=== PATIENT | male | born 1940 | race Caucasian/White ===

== ENCOUNTER → 2020-04-29 14:43 | Outpatient (REF) | payer MEDICARE, SELFPAY | LOC: ANHLAB 14:43 | PROVIDERS: Visit Provider Surgery Plastic and Reconstructive Surgery | DX: D49.2 Neoplasm of unspecified behavior of bone, soft tissue, and skin (principal) | CPT/HCPCS: 88305 ==

== ENCOUNTER 2021-01-22 12:54 | Outpatient (CLI) | payer MEDICARE, SELFPAY ==
--- NOTE | ~2021-01-22 | US_ITS ---
EXAMINATION: US renal BI DATE: 01/22/2021 13:34 INDICATION: Renal insufficiency TECHNIQUE: Multiple ultrasound grayscale images of the kidneys were obtained. COMPARISON: None. FINDINGS: The right kidney measures 10.5 x 5.3 x 5.7 cm. The left kidney measures 10.3 x 5.0 x 6.5 cm. There ap pears to be mildly increased echogenicity of both kidneys consistent with medical renal disease. Ther e are a few small echogenic foci in the right kidney with posterior truncal artifact consistent with calcification either renal stones or atherosclerotic calcification. There are couple anechoic exophyt ic cyst at the periphery of the left kidney measuring 1.2 cm and 1.5 cm in maximal diameters. There i s no hydronephrosis in either kidney. Outside The bladder is normal. IMPRESSION: 1. Bilateral increased renal cortical echogenicity consistent with medical renal disease. 2. A few small calcifications in the right kidney which could represent either nonobstructing renal s tones or atherosclerotic calcifications. No hydronephrosis in either kidney. Reviewed, dictated and finalized at location A. CIATE PROFESSOR OF FORESTRY IMPRESSION: 1. Bilateral increased renal cortical echogenicity consistent with medical denisa al disease. 2. A few small calcifications in the right kidney which could represent either nonobstructing renal stones or atherosclerotic calcifications. No hydronephrosi s in either kidney.
== END 2021-01-22 12:55 | disposition home or self-care (01) ==
DX: N28.9 Disorder of kidney and ureter, unspecified (principal)
CPT/HCPCS: 76775

== ENCOUNTER 2022-05-13 12:31 | Outpatient (CLI) | payer MEDICARE, SELFPAY | END 2022-05-13 12:32 | disposition home or self-care (01) | LOC: ANHAUDIO 12:32 | PROVIDERS: Visit Provider Otolaryngology | DX: H91.93 Unspecified hearing loss, bilateral (principal) | CPT/HCPCS: 92557; 92567 ==

== ENCOUNTER 2023-01-20 17:23 | Observation (INO) | payer MEDICARE, SELFPAY ==
[2023-01-20 17:26] VITALS: BP 153/67; PULSE 79; RESP 19; TEMP 37; O2SAT 98
[2023-01-20 18:11] LABS: Appearance Urine Clear (Clear); Bilirubin Urine Negative (Negative); Blood Urine 2+ (Negative); Color Urine Yellow (Yellow); Glucose Urine UA Negative (Negative); Ketones Urine Negative (Negative); Leukocyte Esterase Ur Negative LEU/UL (Negative); Nitrate Urine Negative (Negative); Protein Urine 3+ mg/dL (Negative); Specific Grav Ur 1.025 (1.001-1.035); Urobilinogen Urine 0.2 mg/dL (<2.0); pH Urine 5.5 (5.0-9.0)
[2023-01-20 18:25] LABS: Mucus Urine Rare /lpf; RBC Urine 0-2 /hpf (0-2); WBC Urine 0-3 /hpf
[2023-01-20 18:26] LABS: Add Urine Microscopic? YES
[2023-01-20 18:57] LABS: Basophils Percent Auto 0.5 % (0.2-1.2); Eosinophils Absolute Auto 0.2 K/mm3 (0-0.3); Hematocrit 37.4 % (42.0-52.0); Immature Granulocyte Absolute 0.02 K/mm3 (0.00-0.031); Immature Granulocyte Percent A 0.3 % (0-0.5); Lymphocytes Absolute Auto 2.25 K/mm3 (0.9-3.2); Lymphocytes Percent Auto 35.5 % (18.3-44.2); Mean Corpuscular HGB Conc 32.1 g/dl (32-36); Mean Corpuscular Hemoglobin 30.8 pg (26-34); Mean Corpuscular Volume 95.9 fl (80-100); Mean Platelet Volume 9.7 fl (7.4-10.4); Monocytes Absolute Auto 0.5 K/mm3 (0.1-0.6); Monocytes Percent Auto 7.6 % (2.6-8.5); Neutrophils Absolute Auto 3.4 K/mm3 (1.3-6.7); Neutrophils Percent Auto 53.1 % (45.5-73.1); Platelet Count Result 152 k/mm3 (150-375); Red Cell Distribution Width 14.6 % (11.5-14.5); White Blood Count 6.3 K/mm3 (4.5-10.0)
[2023-01-20 19:11] LABS: Anion Gap 5 mmol/L (8-16); Blood Urea Nitrogen 40 mg/dL (9-20); Calcium 9.6 mg/dL (8.4-10.2); Carbon Dioxide 28 mmol/L (22-30); Chloride 107 mmol/L (98-107); Estimated CRCL calculation 21 ml/min; Estimated Glomerular Filt Rate 27; Glucose 105 mg/dL (65-110); Potassium 3.9 mmol/L (3.4-5.0); Sodium 140 mmol/L (137-145)
--- NOTE | 2023-01-20 19:43 | ED.GENADULT ---
HPI - General Adult General Chief complaint: Urogenital-Male Stated complaint: decreased urine output Time Seen by Provider: 01/20/23 17:34 Source: patient Mode of arrival: ambulatory Limitations: no limitations History of Present Illness HPI narrative: 82-year-old with a history of HIV, CKD here with complaints of decreased urine output since this morning. Patient states that he diagnosed himself with COVID on Wednesday at home. He denies any fever or chills or cough or shortness of breath. He states he has been drinking enough water but no urine output. Patient states yesterday he had decent urine output but since this morning very minimal. No history of nausea, vomiting or diarrhea. Onset (ago): day(s) (1) Severity: moderate Pain Consistency: constant Relieving factors: none Exacerbating factors: none Associated symptoms: denies other symptoms Treatments prior to arrival: none Related Data Home Medications Medication Instructions Recorded Confirmed acyclovir 400 mg tablet 400 mg PO BID 11/27/19 alfuzosin 10 mg tablet,extended 10 mg PO DAILY 11/27/19 release 24 hr aspirin 81 mg tablet,delayed 81 mg PO DAILY 11/27/19 release (Adult Aspirin Regimen) atorvastatin 40 mg tablet 40 mg PO DAILY 11/27/19 cyclosporine 0.05 % eye drops in a 1 drop ophthalmic (eye) Q12H 11/27/19 dropperette (Restasis) darunavir ethanolate 800 mg tablet 800 mg PO DAILY 11/27/19 (Prezista) donepezil 10 mg tablet 10 mg PO ONCE 11/27/19 elviteg 150 mg-cob 150 mg-emtricit 1 tablet PO DAILY 11/27/19 200 mg-tenofo alafenam 10 mg tablet (Genvoya) escitalopram oxalate 10 mg tablet 10 mg PO BID 11/27/19 (Lexapro) fenofibrate 50 mg capsule 50 mg PO DAILY 11/27/19 finasteride 5 mg tablet 5 mg PO DAILY 11/27/19 quinapril 20 2 tablet PO DAILY 11/27/19 mg-hydrochlorothiazide 25 mg tablet trazodone 100 mg tablet 50 mg PO BID 11/27/19 Allergies Allergy/AdvReac Type Severity Reaction Status Date / Time Penicillins Allergy Unknown Skin Verified 01/20/23 19:09 irritation [facility] Past Medical History Medical History (Updated 01/20/23 @ 19:49 by Ang Kelley MD) History of patellar fracture History of retinal tear HIV (human immunodeficiency virus infection) Surgical History Surgical History History of repair of rotator cuff Exam Narrative: GENERAL: Well-appearing, well-nourished, and in no acute distress. HEAD: Normocephalic, atraumatic. EYES: PERRLA and EOMI. NECK: Supple. CHEST: Clear to auscultation. No respiratory distress. HEART: Regular rate and rhythm. No murmur heard. Normal peripheral pulses. ABDOMEN: Soft, nontender, nondistended, normal active bowel sounds. EXTREMITIES: Normal range of motion. No edema. SKIN: Warm, dry, no rash. NEURO: No focal deficits. Alert and oriented x3. PSYCH: Normal mood and affect. Course Course Emergency Course: Bladder scanner showed 14 mL of urine must be dehydrated we will start IV fluids obtain lab work His creatinine is 2.40 we will admit him to the hospital for IV fluids. Vital Signs Vital signs: Vital Signs Temperature 37.0 C 01/20/23 17:26 Pulse Rate 79 01/20/23 17:26 Respiratory Rate 19 01/20/23 17:26 Blood Pressure 153/67 H 01/20/23 17:26 Pulse Oximetry 98 01/20/23 17:26 Oxygen Delivery Room Air 01/20/23 17:26 Temperature 37.0 C 01/20/23 17:26 Pulse Rate 79 01/20/23 17:26 Respiratory Rate 19 01/20/23 17:26 Blood Pressure 153/67 H 01/20/23 17:26 Pulse Oximetry 98 01/20/23 17:26 Oxygen Delivery Room Air 01/20/23 17:26 Medical Decision Making Vital Signs Vital Signs: Vital Signs Temperature 37.0 C 01/20/23 17:26 Pulse Rate 79 01/20/23 17:26 Respiratory Rate 19 01/20/23 17:26 Blood Pressure 153/67 H 01/20/23 17:26 Pulse Oximetry 98 01/20/23 17:26 Oxygen Delivery Room Air 01/20/23 17:26 Temperature 37.0 C 01/20/23 17:2
--- NOTE | 2023-01-20 19:43 | PM.IMHP ---
H&P: HPI History of Present Illness Date/Time: 01/20/23 19:43 Chief Complaint: Decrease urine output Narrative: This is an 82-year-old male with past medical history significant for HIV, on highly anti retroviral therapy, chronic kidney disease, benign prostatic hyperplasia, dementia, dyslipidemia, hypertension. patient presents to the emergency room due to decreased urine output for 1 day or so patient had been diagnosed at home with COVID-19 he denies any fevers, rigors, chills, nausea, vomiting, diarrhea patient states that he had episodes of urinary incontinence initially. preliminary workup was significant for basic metabolic profile with BUN of 40, creatinine of 2.4, tested positive for COVID-19. patient is been admitted for further evaluation management and treatment. Review of Systems Review of Systems: Patient presents to the emergency room due to decreased urine output patient also tested positive for COVID with a home kit Constitutional: Constitutional: Denies chills, Denies fatigue, Denies fever(s), Denies malaise, Denies night sweats and Denies weakness Eyes: Eyes: Denies change in vision ENT: Denies dysphagia, Denies vertigo, Denies dizziness and Denies odynophagia Cardiovascular: Cardiovascular: Denies chest pain, Denies edema, Denies leg edema, Denies lightheadedness and Denies palpitations Respiratory: Respiratory: Denies chest congestion, Denies cough, Denies pain on inspiration and Denies dyspnea Gastrointestinal: Gastrointestinal: Denies abdominal pain, Denies dyspepsia, Denies heartburn, Denies diarrhea, Denies nausea and Denies vomiting Genitourinary: Genitourinary: Reports urinary incontinence and Reports other ( decreased urine output) Musculoskeletal: Musculoskeletal: Denies back pain and Denies myalgias Integumentary/Breasts: Skin/Breast: Denies rash Neurologic: Denies focal weakness, Denies Sensory deficit (Neuro), Denies paresthesias and Denies weakness Psychiatric: Psychiatric: Reports no additional psychiatric complaints and Reports as per HPI Endocrine: Endocrine: Denies cold intolerance, Denies fatigue, Denies flushing, Denies heat intolerance, Denies polyphagia, Denies polydipsia and Denies palpitations Hematologic/Lymphatic: Hematologic/Lymphatic: Reports no additional hematologic/lymphatic complaints and Reports as per HPI Allergic/Immunologic: Allergic/Immunologic: Reports no additional allergic/immunologic complaints and Reports as per HPI PMFSH Past Medical History Medical History (Updated 01/21/23 @ 00:20 by Tory Rajput MD) History of patellar fracture History of retinal tear HIV (human immunodeficiency virus infection) Surgical History Surgical History History of repair of rotator cuff Family History Family History (Updated 01/20/23 @ 22:39 by Moustapha Santos RN) Father Acute myocardial infarction Mother Acute myocardial infarction Social History Social History Smoking status: Never smoker Alcohol intake: never Substance use: never Lack of Transportation: No Lack of Food: Never True Current Housing: I Have Housing Concerned About Future Housing: No Difficulty Paying Gas/Electric Bills: No Difficulty Paying for Meds: No Currently Unemployed: No Education: Master's Degree or Higher Difficulty w/ Childcare or Family Care: No Spiritual care concerns: No Meds Home Medications and Allergies Home Medications Medication Instructions Recorded Confirmed Type alfuzosin 10 mg tablet,extended 10 mg PO DAILY 11/27/19 01/20/23 History release 24 hr aspirin 81 mg tablet,delayed 81 mg PO DAILY 11/27/19 01/20/23 History release (Adult Aspirin Regimen) atorvastatin 40 mg tablet 40 mg PO DAILY 11/27/19 01/20/23 History donepezil 10 mg tablet 10 mg PO ONCE 11/27/19 01/20/23 History escitalopram oxalate 10 mg tablet 10 mg PO B
[2023-01-20] MEDS: SODIUM CHLORIDE 0.9% IV 1,000 ML 150 ML IV CONT (20:22)
[2023-01-20 20:38] LABS: Influenza A QL RT-PCR Negative (Negative); Influenza B QL RT-PCR Negative (Negative); SARS-CoV-2 RNA PCR Positive
--- NOTE | 2023-01-20 21:33 | ADMGEN ---
This patient, Francisco Mckeon, was admitted to Medical Room 251-01. Patient/family oriented to hospital policies and general routines including ID bracelet, bed and alarms, visiting hours, pain management, procedures, bathroom and other care routines, personal items, smoking policy, room service/diet, and visiting hours. Information on how to activate the Rapid Response Team has been discussed. Patient/Family are encouraged to report perceived risks to care and to ask questions if they do not understand what they are told or what they should do.
[2023-01-20 21:48] VITALS: BP 152/74; PULSE 77; RESP 16; TEMP 36.6; O2SAT 98
[2023-01-20 21:58] VITALS: BMI 22.7
[2023-01-20] MEDS: SODIUM CHLORIDE 0.9% IV 1,000 ML 75 ML IV CONT (22:04)
[2023-01-20] MEDS: traZODone HCL 50 MG TABLET PO (23:24)
[2023-01-20] MEDS: MIRTAZAPINE 15 MG TABLET PO (23:24)
[2023-01-20] MEDS: FENOFIBRATE 160 MG TABLET PO (23:26)
[2023-01-20] MEDS: CALCIUM CARBONATE (TUMS) 500 MG (200 MG ELEMENTAL) 400 MG PO (23:28)
[2023-01-20] MEDS: ATORVASTATIN 40 MG TABLET PO (23:35)
[2023-01-21] VITALS: BP 146/72; PULSE 69; RESP 16; TEMP 36.6; O2SAT 97
[2023-01-21 04:20] VITALS: BP 148/61; PULSE 62; RESP 16; TEMP 36.5; O2SAT 96
[2023-01-21 06:03] LABS: Basophils Percent Auto 0.6 % (0.2-1.2); Eosinophils Absolute Auto 0.2 K/mm3 (0-0.3); Eosinophils Percent Auto 3.9 % (0-4.4); Hematocrit 34.8 % (42.0-52.0); Hemoglobin 11.2 g/dL (14.0-18.0); Immature Granulocyte Absolute 0.01 K/mm3 (0.00-0.031); Immature Granulocyte Percent A 0.2 % (0-0.5); Mean Corpuscular HGB Conc 32.2 g/dl (32-36); Mean Corpuscular Hemoglobin 30.6 pg (26-34); Mean Corpuscular Volume 95.1 fl (80-100); Mean Platelet Volume 10.4 fl (7.4-10.4); Monocytes Absolute Auto 0.5 K/mm3 (0.1-0.6); Monocytes Percent Auto 8.2 % (2.6-8.5); Neutrophils Absolute Auto 3.1 K/mm3 (1.3-6.7); Neutrophils Percent Auto 50.1 % (45.5-73.1); Platelet Count Result 146 k/mm3 (150-375); Red Blood Count 3.66 M/mm3 (4.6-6.20); Red Cell Distribution Width 14.5 % (11.5-14.5); White Blood Count 6.2 K/mm3 (4.5-10.0)
[2023-01-21 06:17] LABS: Anion Gap 3 mmol/L (8-16); Blood Urea Nitrogen 33 mg/dL (9-20); Carbon Dioxide 27 mmol/L (22-30); Chloride 111 mmol/L (98-107); Creatine Kinase 373 U/L (55-170); Estimated CRCL calculation 23 ml/min; Estimated Glomerular Filt Rate 30; Glucose 88 mg/dL (65-110); Potassium 4.1 mmol/L (3.4-5.0); Sodium 141 mmol/L (137-145)
--- NOTE | 2023-01-21 08:02 | PM.IMPN ---
Progress Note: A&P Assessment and Plan (1) COVID-19 in immunocompromised patient: Code(s): U07.1 - COVID-19; D84.9 - Immunodeficiency, unspecified Status: Acute Assessment and Plan: Supportive care, stable on room air, hold off on dexamethasone and remdesivir Check D-dimer, CRP (2) TARSHA (acute kidney injury): Code(s): N17.9 - Acute kidney failure, unspecified Status: Acute Assessment and Plan: Monitor creatinine, continue Ramon for now, hold TRINO-inhibitor, gentle IV fluids, renal ultrasound reviewed, follow-up nephrology consultation Elevated CK, mild, recheck in the a.m. (3) Chronic kidney disease: Code(s): N18.9 - Chronic kidney disease, unspecified Status: Acute Assessment and Plan: Unknown baseline, as above, creatinine was 1.4 in 2020 (4) HIV (human immunodeficiency virus infection): Code(s): B20 - Human immunodeficiency virus [HIV] disease Status: Acute Assessment and Plan: Continue anti-retroviral therapy, consider Heme-Onc consultation, check CD4 count and viral load (5) BPH (benign prostatic hyperplasia): Code(s): N40.0 - Benign prostatic hyperplasia without lower urinary tract symptoms Status: Acute Assessment and Plan: Cont ramon, consider urology consult (6) Dementia: Code(s): F03.90 - Unspecified dementia, unspecified severity, without behavioral disturbance, psychotic disturbance, mood disturbance, and anxiety Status: Acute Assessment and Plan: Stable, continue Aricept (7) Essential hypertension: Code(s): I10 - Essential (primary) hypertension Status: Acute Assessment and Plan: Blood pressures reviewed today, somewhat elevated (8) Hyperlipidemia: Code(s): E78.5 - Hyperlipidemia, unspecified Status: Acute Assessment and Plan: Check fasting lipid panel tomorrow (9) Thrombocytopenia: Code(s): D69.6 - Thrombocytopenia, unspecified Status: Acute Assessment and Plan: Unknown etiology, mild, monitor, could be secondary to HIV status versus acute illness with COVID Plan DVT prophylaxis with SCDs GI prophylaxis not indicated Code status full code Subjective Date/time seen: 01/21/23 08:02 Objective Data Vital Signs Vital Signs: Vital Signs - 24 hr 01/20/23 17:26 01/20/23 21:48 01/21/23 00:00 Temperature 98.6 F 97.8 F 97.8 F Pulse Rate 79 77 69 Respiratory Rate 19 16 16 Blood Pressure 153/67 H 152/74 H 146/72 H Pulse Oximetry 98 98 97 Oxygen Delivery Room Air 01/21/23 04:20 Temperature 97.7 F Pulse Rate 62 Respiratory Rate 16 Blood Pressure 148/61 H Pulse Oximetry 96 Oxygen Delivery Intake/Output Intake/Output: Intake & Output 01/18/23 01/19/23 01/20/23 01/21/23 23:59 23:59 23:59 23:59 Intake Total 250 Output Total 1400 Balance -1150 Meds/Results Medications: Active Medications Generic Name Dose Route Start Last Admin Trade Name Freq PRN Reason Stop Dose Admin Acetaminophen 650 mg 01/20/23 19:49 Acetaminophen 325 Mg Tablet PO Q4H PRN Mild Pain (1-3) or Fever Alfuzosin HCl 10 mg 01/21/23 09:00 Alfuzosin 10 Mg Er Tablet PO DAILY [facility] Alprazolam 0.25 mg 01/20/23 22:40 Alprazolam (*Crx) 0.25 Mg Tablet PO BID PRN anxiety Amlodipine Besylate 5 mg 01/21/23 09:00 Amlodipine Besylate 5 Mg Tablet PO DAILY [facility] Aspirin 81 mg 01/21/23 09:00 Aspirin 81 Mg Enteric Tablet PO DAILY [facility] Atorvastatin Calcium 40 mg 01/20/23 23:35 01/20/23 23:35 Atorvastatin 40 Mg Tablet PO 40 mg HS EFREM Administration Calcium Carbonate 400 mg 01/20/23 22:56 01/20/23 23:28 Calcium Carbonate (Tums) 500 Mg (200 Mg Elemental) PO 400 mg Q4H PRN Administration Indigestion Donepezil HCl 10 mg 01/21/23 09:00 Donepezil Hcl 10 Mg Tablet PO DAILY [facility] Escitalopram Oxalate 10 mg
[2023-01-21] MEDS: ASPIRIN 81 MG ENTERIC TABLET PO (09:15)
[2023-01-21] MEDS: amLODIPine BESYLATE 5 MG TABLET PO (09:15)
[2023-01-21] MEDS: ESCITALOPRAM OXALATE 10 MG TABLET PO (09:16)
[2023-01-21] MEDS: FINASTERIDE 5 MG TABLET PO (09:17)
[2023-01-21] MEDS: DONEPEZIL HCL 10 MG TABLET PO (09:17)
[2023-01-21 12:20] LABS: D Dimer 0.91 ug/mL (<0.48)
[2023-01-21 13:06] LABS: CRP 1.9 mg/dL (<1.0)
[2023-01-21 13:43] VITALS: BP 163/64; PULSE 64; RESP 18; TEMP 37.1; O2SAT 99
--- NOTE | 2023-01-21 14:07 | PM.DS ---
DS: Admitting Diagnosis Discharge Date 01/21/23 Admitting Diagnosis urinary retention DS: Discharge Diagnosis Discharge Diagnosis (1) COVID-19 in immunocompromised patient: Code(s): U07.1 - COVID-19; D84.9 - Immunodeficiency, unspecified Status: Acute Assessment and Plan: Supportive care, stable on room air, hold off on dexamethasone and remdesivir Check D-dimer, CRP (2) TARSHA (acute kidney injury): Code(s): N17.9 - Acute kidney failure, unspecified Status: Acute Assessment and Plan: Monitor creatinine, continue Ramon for now, hold TRINO-inhibitor, gentle IV fluids, renal ultrasound reviewed, follow-up nephrology consultation Elevated CK, mild, recheck in the a.m. (3) Chronic kidney disease: Code(s): N18.9 - Chronic kidney disease, unspecified Status: Acute Assessment and Plan: Unknown baseline, as above, creatinine was 1.4 in 2020 (4) HIV (human immunodeficiency virus infection): Code(s): B20 - Human immunodeficiency virus [HIV] disease Status: Acute Assessment and Plan: Continue anti-retroviral therapy, consider Heme-Onc consultation, check CD4 count and viral load (5) BPH (benign prostatic hyperplasia): Code(s): N40.0 - Benign prostatic hyperplasia without lower urinary tract symptoms Status: Acute Assessment and Plan: Cont ramon, consider urology consult (6) Dementia: Code(s): F03.90 - Unspecified dementia, unspecified severity, without behavioral disturbance, psychotic disturbance, mood disturbance, and anxiety Status: Acute Assessment and Plan: Stable, continue Aricept (7) Essential hypertension: Code(s): I10 - Essential (primary) hypertension Status: Acute Assessment and Plan: Blood pressures reviewed today, somewhat elevated (8) Hyperlipidemia: Code(s): E78.5 - Hyperlipidemia, unspecified Status: Acute Assessment and Plan: Check fasting lipid panel tomorrow (9) Thrombocytopenia: Code(s): D69.6 - Thrombocytopenia, unspecified Status: Acute Assessment and Plan: Unknown etiology, mild, monitor, could be secondary to HIV status versus acute illness with COVID Plan DVT prophylaxis with SCDs GI prophylaxis not indicated Code status full code DS: Summary Hospital Course Hospital Course: 82-year-old male with past medical history significant for HIV, on highly anti retroviral therapy, chronic kidney disease, benign prostatic hyperplasia, dementia, dyslipidemia, hypertension. patient presents to the emergency room due to decreased urine output for 1 day or so patient had been diagnosed at home with COVID-19 he denies any fevers, rigors, chills, nausea, vomiting, diarrhea patient states that he had episodes of urinary incontinence initially. preliminary workup was significant for basic metabolic profile with BUN of 40, creatinine of 2.4, tested positive for COVID-19.? patient is been admitted for further evaluation management and treatment. All patient's symptoms resolved at this time he is requesting to go home. He states he can do follow-up HIV labs and medications with his outpatient physician. Creatinine is improving with minimal intervention. Urinary retention is resolved and Ramon is removed. If the symptoms resolve, he will need to follow up with Urology or return to the ER. Suspect urinary retention secondary to BPH. Follow-up with family medicine outpatient. Time Spent with Patient Time attestation: Total time spent providing and/or coordinating discharge services: DS: Data Data Completed and Pending Labs on day of discharge: Labs from last 24 hours 01/21/23 01/21/23 01/21/23 11:48 11:48 11:48 WBC RBC Hgb Hct MCV MCH MCHC RDW Plt Count MPV Immature Gran % (Auto) Neut % (Auto) Lymph % (Auto) Hall % (Auto) Eos % (Auto) Baso % (Auto)
[2023-01-23 16:21] LABS: HIV 1 RNA PCR Not Detected Copies/mL; HIV 1 RNA PCR Not Detected Log cps/mL
[2023-01-26 17:04] LABS: Absolute CD4 Count 264 cells/uL (490-1740); Lymphocytes, Absolute 1597 cells/uL (850-3900); Percent CD4 Cells 17 % (30-61)
== END 2023-01-21 14:37 | disposition home or self-care (01) ==
LOC: ANHED 19:49 → ANH2MED 21:42
PROVIDERS: Admitting Provider Internal Medicine; Emergency Provider Family Medicine; Visit Provider Student in an Organized Health Care Education/Training Program
DX: U07.1 COVID-19 (principal); N17.9 Acute kidney failure, unspecified; I12.9 Hypertensive chronic kidney disease with stage 1 through stage 4 chronic kidney disease, or unspecified chronic kidney disease; N18.9 Chronic kidney disease, unspecified; B20 Human immunodeficiency virus [HIV] disease; F03.90 Unspecified dementia, unspecified severity, without behavioral disturbance, psychotic disturbance, mood disturbance, and anxiety; N40.0 Benign prostatic hyperplasia without lower urinary tract symptoms; E78.2 Mixed hyperlipidemia; D69.6 Thrombocytopenia, unspecified; Z79.82 Long term (current) use of aspirin; Z79.899 Other long term (current) drug therapy
CPT/HCPCS: 36415; 80048; 81001; 82550; 85025; 85380; 86140; 86361; 87536; 87636; 99285; A9270; G0378; J7030

== ENCOUNTER 2023-03-11 19:51 | Inpatient (IN) | payer MEDICARE, SELFPAY ==
--- NOTE | ~2023-03-11 | CT_ITS ---
Non-contrast CT scan of the Abdomen and Pelvis Clinical indication: Abdominal pain Technique: 2.5 mm axial scans were obtained through the abdomen and pelvis without intravenous or or al contrast. Dose reduction technique was used on this scan by utilizing automated exposure control a nd iterative reconstruction technique. The dose-length product (DLP) was 426.91 mGy-cm. COMPARISON: 07/04/2012 Findings: Images through the lung bases reveal no abnormalities. There is no evidence of renal or ureteral calculi. The kidneys and the ureters are nondilated. There are probable small bilateral hyperdense renal cysts. The liver, spleen, pancreas, gallbladder, and adrenals appear normal. Infrarenal abdominal aortic ane urysm measures 4.0 cm in diameter. There are atherosclerotic calcifications of the aorta. There is no evidence of bowel obstruction. There is extensive sigmoid diverticulosis, mild wall thick ening of the sigmoid colon. The mid sigmoid colon and rectum are closely apposed, and focal lesion is not excluded. No acute inflammatory change evident. Images through the pelvis were performed. There is no evidence of ascites or lymphadenopathy. Questio nable urinary bladder wall thickening versus underdistention. No pelvic mass evident. Impression: 4.0 cm infrarenal abdominal aortic aneurysm. Extensive sigmoid diverticulosis. Mild wall thickening may be related diverticulosis versus possibly minimal acute diverticulitis. No significant inflammatory change or abscess. Questionable adhesion be tween the rectum and sigmoid colon. Suspected urinary bladder wall thickening. Correlate for cystitis. Reviewed, dictated and finalized at [facility]. Impression: 4.0 cm infrarenal abdominal aortic aneurysm. Extensive sigmoid diverticulosis. Mild wall thickening may be related diverticu losis versus possibly minimal acute diverticulitis. No significant inflammatory change or abscess. Questionable adhesion between the rectum and sigmoid colon. Suspected urinary bladder wall thickening. Correlate for cystitis.
[2023-03-11 20:08] VITALS: BP 82/35; PULSE 75; RESP 18; TEMP 36.8; O2SAT 93
--- NOTE | 2023-03-11 20:14 | ECG_ITS ---
Measurements Intervals [place] Rate: 99 P: 23 SC: 165 QRS: -67 QRSD: 94 T: 81 QT: 354 QTc: 454 Interpretive Statements SINUS RHYTHM LEFT ANTERIOR FASCICULAR BLOCK LEFT VENTRICULAR HYPERTROPHY AND ST-T CHANGE ABNORMAL ECG COMPARED TO ECG 11/30/2019 14:22:44 HEART RATE HAS INCREASED Electronically Signed On 03-12-2023 16:37:59 CDT by Jason Hudson M.D.
[2023-03-11 20:55] LABS: Basophils Absolute Auto 0.1 K/mm3 (0.0-0.1); Basophils Percent Auto 0.4 % (0.2-1.2); Hematocrit 39.5 % (42.0-52.0); Hemoglobin 12.7 g/dL (14.0-18.0); Immature Granulocyte Absolute 0.11 K/mm3 (0.00-0.031); Immature Granulocyte Percent A 0.7 % (0-0.5); Lymphocytes Absolute Auto 1.36 K/mm3 (0.9-3.2); Lymphocytes Percent Auto 8.1 % (18.3-44.2); Mean Corpuscular HGB Conc 32.2 g/dl (32-36); Mean Corpuscular Hemoglobin 30.6 pg (26-34); Mean Corpuscular Volume 95.2 fl (80-100); Mean Platelet Volume 9.5 fl (7.4-10.4); Monocytes Absolute Auto 0.8 K/mm3 (0.1-0.6); Neutrophils Absolute Auto 14.5 K/mm3 (1.3-6.7); Neutrophils Percent Auto 85.8 % (45.5-73.1); Platelet Count Result 206 k/mm3 (150-375); Red Blood Count 4.15 M/mm3 (4.6-6.20); White Blood Count 16.9 K/mm3 (4.5-10.0)
[2023-03-11 21:08] LABS: Alanine Aminotransferase 29 U/L (6-50); Albumin Level 3.8 g/dL (3.5-5.1); Alkaline Phosphatase 42 U/L (38-126); Anion Gap 10 mmol/L (8-16); Aspartate Amino Transferase 38 U/L (17-59); Bilirubin,Total 0.6 mg/dL (0.2-1.3); Blood Urea Nitrogen 50 mg/dL (9-20); Calcium 9.8 mg/dL (8.4-10.2); Carbon Dioxide 24 mmol/L (22-30); Chloride 103 mmol/L (98-107); Estimated CRCL calculation 14 ml/min; Estimated Glomerular Filt Rate 17; Glucose 131 mg/dL (65-110); Lipase 765 U/L (23-300); Potassium 4.1 mmol/L (3.4-5.0); Sodium 137 mmol/L (137-145)
[2023-03-11 23:03] VITALS: BP 127/76; PULSE 93; RESP 16; O2SAT 95
[2023-03-12] VITALS (7 sets, daily range): BP systolic 116–160; BP diastolic 55–69; PULSE 50–82; RESP 14–20; TEMP 36.6–37.4; O2SAT 90–96; BMI 23.3
[2023-03-12] MEDS: SODIUM CHLORIDE 0.9% IV 1,000 ML 999 ML IV CONT ×2 (00:27→03:17)
[2023-03-12] MEDS: ONDANSETRON INJ 4 MG/2 ML VIAL IV PUSH (00:28)
[2023-03-12] MEDS: PANTOPRAZOLE SODIUM IV 40 MG VIAL IV PUSH (00:28)
--- NOTE | 2023-03-12 01:36 | ED.GENADULT ---
HPI - General Adult General Chief complaint: Nausea/Vomiting/Diarrhea Stated complaint: N/V/D; CANNOT URINATE Time Seen by Provider: 03/11/23 23:14 History of Present Illness HPI narrative: Patient is a 82-year-old gentleman who presents the emergency department with chief complaint of nausea vomiting and diarrhea. Patient reports that he has history of chronic kidney disease and reports that today started having large amounts of diarrhea. The patient states he took 2 doses of Lomotil and was continued to have diarrhea. Patient reports that he is also felt nauseated has not been able to eat or drink anything. Patient denies localizing abdominal pain patient does report that he feels very dry and reports that he has not had any urine output. Related Data Home Medications Medication Instructions Recorded Confirmed alfuzosin 10 mg tablet,extended 10 mg PO DAILY 11/27/19 01/28/23 release 24 hr aspirin 81 mg tablet,delayed 81 mg PO DAILY 11/27/19 01/28/23 release (Adult Aspirin Regimen) atorvastatin 40 mg tablet 40 mg PO DAILY 11/27/19 01/28/23 donepezil 10 mg tablet 10 mg PO ONCE 11/27/19 01/28/23 escitalopram oxalate 10 mg tablet 10 mg PO BID 11/27/19 01/28/23 (Lexapro) fenofibrate 50 mg capsule 160 mg PO HS 11/27/19 01/28/23 finasteride 5 mg tablet 5 mg PO DAILY 11/27/19 01/28/23 trazodone 100 mg tablet 50 mg PO HS 11/27/19 01/28/23 alprazolam 0.5 mg tablet 0.25 mg PO BID PRN anxiety 01/20/23 01/28/23 amlodipine 5 mg tablet 5 mg PO DAILY 01/20/23 01/28/23 dolutegravir 50 mg tablet (Tivicay) 25 mg PO DAILY 01/20/23 01/28/23 doravirine 100 mg tablet (Pifeltro) 100 mg PO DAILY 01/20/23 01/28/23 mirtazapine 15 mg tablet 15 mg PO HS 01/20/23 01/28/23 quinapril 40 mg tablet 40 mg PO DAILY 01/20/23 01/28/23 Allergies Allergy/AdvReac Type Severity Reaction Status Date / Time Penicillins Allergy Unknown Skin Verified 01/28/23 10:42 irritation Review of Systems Review of Systems: A 10 system review of systems was completed on the patient and is negative except for what is stated in the HPI. Nursing and ancillary documentation was reviewed. [facility] Past Medical History Medical History BPH (benign prostatic hyperplasia) Chronic kidney disease Dementia Essential hypertension History of patellar fracture History of retinal tear HIV (human immunodeficiency virus infection) Hyperlipidemia Surgical History Surgical History History of repair of rotator cuff Family History Family History Father Acute myocardial infarction Mother Acute myocardial infarction Social History Social History Smoking status: Never smoker Alcohol intake: never Substance use: never Lack of Transportation: No Lack of Food: Never True Current Housing: I Have Housing Concerned About Future Housing: No Difficulty Paying Gas/Electric Bills: No Difficulty Paying for Meds: No Currently Unemployed: No Education: Master's Degree or Higher Difficulty w/ Childcare or Family Care: No Gender identity (if verbalized by the patient): Male Spiritual care concerns: No Exam Narrative: GENERAL: Well-appearing, well-nourished, and in no acute distress. HEAD: Normocephalic, atraumatic. EYES: PERRLA and EOMI. ENT: Nares clear, no rhinorrhea or epistaxis. Mucous membranes dry. NECK: Supple. CHEST: Clear to auscultation. No respiratory distress. HEART: Regular rate and rhythm. No murmur heard. Normal peripheral pulses. ABDOMEN: Soft, mild tenderness in the lower quadrants of the, nondistended, normal active bowel sounds. EXTREMITIES: Normal range of motion. No edema. SKIN: Warm, dry, no rash. NEURO: No focal deficits. Alert and oriented x3. PSYCH: Normal mood and affect. C
[2023-03-12 04:01] LABS: Appearance Urine Cloudy (Clear); Bacteria Urine None Seen /hpf; Bilirubin Urine Negative (Negative); Blood Urine Negative (Negative); Color Urine Yellow (Yellow); Glucose Urine UA Negative (Negative); Hyaline Casts Urine Present /lpf; Ketones Urine Trace mg/dL (Negative); Leukocyte Esterase Ur Trace LEU/UL (Negative); Mucus Urine Present /lpf; Nitrate Urine Negative (Negative); Protein Urine 3+ mg/dL (Negative); RBC Urine 0-2 /hpf (0-2); Specific Grav Ur 1.016 (1.001-1.035); Squamous Epithelial Cell Urine Few /hpf (Few); Urobilinogen Urine 0.2 mg/dL (<2.0)
[2023-03-12 04:06] LABS: Add Urine Microscopic? YES
[2023-03-12] MEDS: metroNIDAZOLE 500 MG/ISO 100ML 500 MG/100 ML BAG 100 MG IVPB ×4 (05:56→23:08)
[2023-03-12] MEDS: SODIUM CHLORIDE 0.9% IV 1,000 ML 125 ML IV CONT (06:49)
[2023-03-12] MEDS: ATORVASTATIN 40 MG TABLET PO (11:15)
[2023-03-12] MEDS: amLODIPine BESYLATE 5 MG TABLET PO (11:15)
[2023-03-12] MEDS: FINASTERIDE 5 MG TABLET PO (11:15)
--- NOTE | 2023-03-12 12:51 | PC.NURSE ---
On 03/12/23, the student, [Yasmani Pang], provided care and completed [facility] documentation on this patient. I have reviewed the student's documentation and agree with the findings.
--- NOTE | 2023-03-12 12:57 | PM.IMHP ---
H&P: HPI History of Present Illness Date/Time: 03/12/23 12:57 Chief Complaint: Nausea, vomiting and diarrhea Narrative: ED-HPI narrative: Patient is a 82-year-old gentleman who presents the emergency department with chief complaint of nausea vomiting and diarrhea.? Patient reports that he has history of chronic kidney disease and reports that today started having large amounts of diarrhea.? The patient states he took 2 doses of Lomotil and was continued to have diarrhea.? Patient reports that he is also felt nauseated has not been able to eat or drink anything.? Patient denies localizing abdominal pain patient does report that he feels very dry and reports that he has not had any urine output. CT scan of abdomen is suspicious for sigmoid colitis patient started on Levaquin and Flagyl and being hydrated patient states is feeling little better the pain is improving is not as nauseated, patient urine is also suspicious for UTI will continue Levaquin and follow up on urine culture, will continue to monitor will have PT OT evaluate the patient. Patient admitted as inpatient will spend in the hospital for 2 midnights due to sigmoid colitis on IV antibiotics Review of Systems Review of Systems: A 10 system review of systems was completed on the patient and is negative except for what is stated in the HPI. Nursing and ancillary documentation was reviewed. [facility] Past Medical History Medical History BPH (benign prostatic hyperplasia) Chronic kidney disease Dementia Essential hypertension History of patellar fracture History of retinal tear HIV (human immunodeficiency virus infection) Hyperlipidemia Surgical History Surgical History History of repair of rotator cuff Family History Family History Father Acute myocardial infarction Mother Acute myocardial infarction Social History Social History Smoking packs per day: 2 Smoking cigarettes per day: 40.0 Smoking status: Former smoker Tobacco type: cigarettes Alcohol intake: never Substance use: never Substance use type: does not use Lack of Transportation: No Lack of Food: Never True Current Housing: I Have Housing Concerned About Future Housing: No Difficulty Paying Gas/Electric Bills: No Difficulty Paying for Meds: No Currently Unemployed: No Education: Master's Degree or Higher Difficulty w/ Childcare or Family Care: No Gender identity (if verbalized by the patient): Male Spiritual care concerns: No Meds Home Medications and Allergies Home Medications Medication Instructions Recorded Confirmed Type alfuzosin 10 mg tablet,extended 10 mg PO DAILY 11/27/19 03/12/23 History release 24 hr aspirin 81 mg tablet,delayed 81 mg PO HS 11/27/19 03/12/23 History release (Adult Aspirin Regimen) atorvastatin 40 mg tablet 40 mg PO DAILY 11/27/19 03/12/23 History donepezil 10 mg tablet 10 mg PO HS 11/27/19 03/12/23 History escitalopram oxalate 10 mg tablet 10 mg PO BID 11/27/19 03/12/23 History (Lexapro) fenofibrate 50 mg capsule 160 mg PO HS 11/27/19 03/12/23 History finasteride 5 mg tablet 5 mg PO DAILY 11/27/19 03/12/23 History trazodone 100 mg tablet 100 mg PO HS 11/27/19 03/12/23 History alprazolam 0.5 mg tablet 0.25 mg PO DAILY PRN anxiety 01/20/23 03/12/23 History amlodipine 5 mg tablet 5 mg PO DAILY 01/20/23 03/12/23 History dolutegravir 50 mg tablet (Tivicay) 25 mg PO DAILY 01/20/23 03/12/23 History doravirine 100 mg tablet (Pifeltro) 100 mg PO DAILY 01/20/23 03/12/23 History mirtazapine 15 mg tablet 15 mg PO HS 01/20/23 03/12/23 History quinapril 40 mg tablet 40 mg PO DAILY 01/20/23 03/12/23 History Restasis 1 cap EACH EYE BID 03/12/23 03/12/23 History Allergies Allergy/Adv
--- NOTE | 2023-03-12 14:03 | PC.NURSE ---
On 03/12/23, the student, [Lidia Brown], provided care and completed [facility] documentation on this patient. I have reviewed the student's documentation and agree with the findings.
--- NOTE | 2023-03-12 20:25 | PC.NURSE ---
Addendum entered by Aruna Mendez RN 03/12/23 20:32: Spoke w/ hospitalist, Elizabeth Olivares about which order to put in for Lexapro. Order to put a one time order for Lexapro tonight. Original Note: Spoke with pharmacist about rescheduling Lexapro. Lexapro was scheduled for 1700 today but pt did not want to take it then and day shift nurse documented as not given. Pt would like to still have Lexapro tonight w/ the rest of his night time meds. Pharmacist said a one time order can be placed or order can be changed to be given every 12 hrs.
[2023-03-12] MEDS: DONEPEZIL HCL 10 MG TABLET PO (21:46)
[2023-03-12] MEDS: ASPIRIN 81 MG ENTERIC TABLET PO (21:46)
[2023-03-12] MEDS: MIRTAZAPINE 15 MG TABLET PO (21:46)
[2023-03-12] MEDS: cycloSPORINE 0.4 ML OPHTH SOLUTION 1 DROP EACH EYE (21:47)
[2023-03-12] MEDS: ESCITALOPRAM OXALATE 10 MG TABLET PO (21:47)
[2023-03-12] MEDS: traZODone HCL 50 MG TABLET 100 MG PO (21:47)
[2023-03-12] MEDS: FENOFIBRATE 160 MG TABLET PO (21:47)
[2023-03-13 03:18] VITALS: BP 156/76; PULSE 81; RESP 20; TEMP 36.9; O2SAT 87
[2023-03-13 03:34] VITALS: O2SAT 87
[2023-03-13] MEDS: SODIUM CHLORIDE 0.9% IV 1,000 ML 125 ML IV CONT (03:53)
[2023-03-13] MEDS: metroNIDAZOLE 500 MG/ISO 100ML 500 MG/100 ML BAG 100 MG IVPB ×4 (05:27→23:13)
[2023-03-13 06:59] LABS: Hematocrit 33.9 % (42.0-52.0); Hemoglobin 10.9 g/dL (14.0-18.0); Mean Corpuscular HGB Conc 32.2 g/dl (32-36); Mean Corpuscular Hemoglobin 30.7 pg (26-34); Mean Corpuscular Volume 95.5 fl (80-100); Mean Platelet Volume 10.1 fl (7.4-10.4); Platelet Count Result 147 k/mm3 (150-375); Red Blood Count 3.55 M/mm3 (4.6-6.20); Red Cell Distribution Width 15.2 % (11.5-14.5)
[2023-03-13 07:24] LABS: Anion Gap 8 mmol/L (8-16); Blood Urea Nitrogen 46 mg/dL (9-20); Calcium 8.2 mg/dL (8.4-10.2); Carbon Dioxide 20 mmol/L (22-30); Chloride 112 mmol/L (98-107); Estimated CRCL calculation 16 ml/min; Estimated Glomerular Filt Rate 19; Glucose 83 mg/dL (65-110); Lipase 300 U/L (23-300); Magnesium 1.7 mg/dL (1.6-2.3); Potassium 3.9 mmol/L (3.4-5.0); Sodium 140 mmol/L (137-145)
[2023-03-13 08:00] VITALS: O2SAT 93
[2023-03-13] MEDS: ESCITALOPRAM OXALATE 10 MG TABLET PO ×2 (08:24→20:10)
[2023-03-13] MEDS: amLODIPine BESYLATE 5 MG TABLET PO (08:24)
[2023-03-13] MEDS: ATORVASTATIN 40 MG TABLET PO (08:24)
[2023-03-13] MEDS: FINASTERIDE 5 MG TABLET PO (08:24)
[2023-03-13] MEDS: cycloSPORINE 0.4 ML OPHTH SOLUTION 1 DROP EACH EYE ×2 (08:24→20:10)
[2023-03-13] MEDS: SODIUM CHLORIDE 0.9% IV 1,000 ML 50 ML IV CONT (11:15)
--- NOTE | 2023-03-13 11:21 | PM.IMPN ---
Progress Note: A&P Assessment and Plan (1) Diverticulitis: Code(s): K57.92 - Diverticulitis of intestine, part unspecified, without perforation or abscess without bleeding Status: Acute Assessment and Plan: ED-HPI narrative: Patient is a 82-year-old gentleman who presents the emergency department with chief complaint of nausea vomiting and diarrhea.? Patient reports that he has history of chronic kidney disease and reports that today started having large amounts of diarrhea.? The patient states he took 2 doses of Lomotil and was continued to have diarrhea.? Patient reports that he is also felt nauseated has not been able to eat or drink anything.? Patient denies localizing abdominal pain patient does report that he feels very dry and reports that he has not had any urine output. 03/13/2023 interval history: CT scan of abdomen is suspicious for sigmoid colitis patient si started on Levaquin and Flagyl and being hydrated patient states is feeling little better the pain is improving is not as nauseated, patient Scr is improvng to 3.1 compared to when arrived 3.5, will continue to gently hydrate the patient, patient urine is also suspicious for UTI so far no growth, will continue Levaquin and follow up on urine culture, will continue to monitor will have PT OT evaluate the patient. (2) Elevated lipase: Code(s): R74.8 - Abnormal levels of other serum enzymes Status: Acute Assessment and Plan: Most likely reactive will hydrate the patient and monitor. (3) Acute kidney injury: Code(s): N17.9 - Acute kidney failure, unspecified Status: Acute Assessment and Plan: Patient with acute on chronic kidney disease most likely secondary to dehydration due to poor p.o. intake will gently hydrate the patient and monitor (4) Essential hypertension: Code(s): I10 - Essential (primary) hypertension Status: Acute Assessment and Plan: Continue home regimen and monitor (5) BPH (benign prostatic hyperplasia): Code(s): N40.0 - Benign prostatic hyperplasia without lower urinary tract symptoms Status: Acute Assessment and Plan: Will continue home regimen and monitor Subjective Date/time seen: 03/13/23 11:21 ED-HPI narrative: Patient is a 82-year-old gentleman who presents the emergency department with chief complaint of nausea vomiting and diarrhea.? Patient reports that he has history of chronic kidney disease and reports that today started having large amounts of diarrhea.? The patient states he took 2 doses of Lomotil and was continued to have diarrhea.? Patient reports that he is also felt nauseated has not been able to eat or drink anything.? Patient denies localizing abdominal pain patient does report that he feels very dry and reports that he has not had any urine output. 03/13/2023 interval history: CT scan of abdomen is suspicious for sigmoid colitis patient si started on Levaquin and Flagyl and being hydrated patient states is feeling little better the pain is improving is not as nauseated, patient Scr is improvng to 3.1 compared to when arrived 3.5, will continue to gently hydrate the patient, patient urine is also suspicious for UTI so far no growth, will continue Levaquin and follow up on urine culture, will continue to monitor will have PT OT evaluate the patient. Exam Narrative: Elderly frail Patient is comfortable, NAD HEENT: eyes are clear and none icteric LUNGS: Normal respiratory effort ABD: Not distended Lower extremities: no edema SKIN: nonjaundiced Neuro: grossly intact. Objective Data Vital Signs Vital Signs: Vital Signs - 24 hr 03/12/23 13:19 03/12/23 19:51 03/12/23 22:00 Temperature 98.2 F 98.2 F 97.8 F Pulse Rate 70 82 69 Respiratory Rate 16 18 18 Blood Pressure 137/55 L 152/65 H 146/67 H Pulse Oximetry 95 90 90 Oxygen Delivery Oxygen Flow Rate 03/12/23 21:35 03/13/23 03:18 03/13/23 03:34 Temperature 98.5
--- NOTE | 2023-03-13 12:42 | PCPTNOTE ---
Patient walking with nursing in the hallway, called MD to see if they wanted to cancel order. Left a voicemail on [facility].
[2023-03-13 14:00] VITALS: BP 143/59; PULSE 66; RESP 16; TEMP 37.4; O2SAT 93
--- NOTE | 2023-03-13 14:30 | PC.NURSE ---
Asked patient if they can bring Pifeltro from home. Patient states that family member can bring it in.
[2023-03-13 20:00] VITALS: BP 160/68; PULSE 67; RESP 18; TEMP 36.9; O2SAT 95
[2023-03-13] MEDS: FENOFIBRATE 160 MG TABLET PO (20:10)
[2023-03-13] MEDS: MIRTAZAPINE 15 MG TABLET PO (20:10)
[2023-03-13] MEDS: ASPIRIN 81 MG ENTERIC TABLET PO (20:10)
[2023-03-13] MEDS: traZODone HCL 50 MG TABLET 100 MG PO (20:10)
[2023-03-13] MEDS: DONEPEZIL HCL 10 MG TABLET PO (20:10)
[2023-03-13 22:00] VITALS: BP 159/74; PULSE 76; RESP 18; TEMP 36.6; O2SAT 91
[2023-03-14] MEDS: metroNIDAZOLE 500 MG/ISO 100ML 500 MG/100 ML BAG 100 MG IVPB ×4 (05:03→23:22)
[2023-03-14 06:00] VITALS: BP 161/77; PULSE 66; RESP 18; TEMP 36.6; O2SAT 93
[2023-03-14] MEDS: levoFLOXacin 500 MG/D5W 100 ML 500 MG/100 ML BAG 66.67 MG IVPB (06:08)
[2023-03-14 06:22] LABS: Hematocrit 34.8 % (42.0-52.0); Hemoglobin 11.1 g/dL (14.0-18.0); Mean Corpuscular HGB Conc 31.9 g/dl (32-36); Mean Corpuscular Volume 97.2 fl (80-100); Mean Platelet Volume 9.5 fl (7.4-10.4); Platelet Count Result 133 k/mm3 (150-375); Red Blood Count 3.58 M/mm3 (4.6-6.20)
[2023-03-14 07:18] LABS: Anion Gap 3 mmol/L (8-16); Blood Urea Nitrogen 34 mg/dL (9-20); Calcium 8.4 mg/dL (8.4-10.2); Carbon Dioxide 24 mmol/L (22-30); Chloride 113 mmol/L (98-107); Estimated CRCL calculation 20 ml/min; Estimated Glomerular Filt Rate 25; Glucose 95 mg/dL (65-110); Magnesium 1.8 mg/dL (1.6-2.3); Potassium 3.7 mmol/L (3.4-5.0); Sodium 140 mmol/L (137-145)
[2023-03-14] MEDS: FINASTERIDE 5 MG TABLET PO (08:30)
[2023-03-14] MEDS: cycloSPORINE 0.4 ML OPHTH SOLUTION 1 DROP EACH EYE ×2 (08:30→20:07)
[2023-03-14] MEDS: ESCITALOPRAM OXALATE 10 MG TABLET PO ×2 (08:30→20:08)
[2023-03-14] MEDS: amLODIPine BESYLATE 5 MG TABLET PO (08:30)
[2023-03-14] MEDS: ATORVASTATIN 40 MG TABLET PO (08:30)
--- NOTE | 2023-03-14 09:57 | PM.IMPN ---
Progress Note: A&P Assessment and Plan (1) Diverticulitis: Code(s): K57.92 - Diverticulitis of intestine, part unspecified, without perforation or abscess without bleeding Status: Acute Assessment and Plan: ED-HPI narrative: Patient is a 82-year-old gentleman who presents the emergency department with chief complaint of nausea vomiting and diarrhea.? Patient reports that he has history of chronic kidney disease and reports that today started having large amounts of diarrhea.? The patient states he took 2 doses of Lomotil and was continued to have diarrhea.? Patient reports that he is also felt nauseated has not been able to eat or drink anything.? Patient denies localizing abdominal pain patient does report that he feels very dry and reports that he has not had any urine output. 03/14/2023 interval history: CT scan of abdomen is suspicious for sigmoid colitis patient is started on Levaquin and Flagyl and being hydrated patient states is feeling little better the pain is improving is not as nauseated, patient Scr is improvng to 2.5 compared to when he arrived 3.5, will continue to gently hydrate the patient, patient urine is also suspicious for UTI so far no growth, will continue Levaquin and follow up on urine culture, will continue to monitor will have PT OT evaluate the patient. (2) Elevated lipase: Code(s): R74.8 - Abnormal levels of other serum enzymes Status: Acute Assessment and Plan: Most likely reactive will hydrate the patient and monitor. (3) Acute kidney injury: Code(s): N17.9 - Acute kidney failure, unspecified Status: Acute Assessment and Plan: Patient with acute on chronic kidney disease most likely secondary to dehydration due to poor p.o. intake will gently hydrate the patient and monitor (4) Essential hypertension: Code(s): I10 - Essential (primary) hypertension Status: Acute Assessment and Plan: Continue home regimen and monitor (5) BPH (benign prostatic hyperplasia): Code(s): N40.0 - Benign prostatic hyperplasia without lower urinary tract symptoms Status: Acute Assessment and Plan: Will continue home regimen and monitor Subjective Date/time seen: 03/14/23 09:57 ED-HPI narrative: Patient is a 82-year-old gentleman who presents the emergency department with chief complaint of nausea vomiting and diarrhea.? Patient reports that he has history of chronic kidney disease and reports that today started having large amounts of diarrhea.? The patient states he took 2 doses of Lomotil and was continued to have diarrhea.? Patient reports that he is also felt nauseated has not been able to eat or drink anything.? Patient denies localizing abdominal pain patient does report that he feels very dry and reports that he has not had any urine output. 03/14/2023 interval history: CT scan of abdomen is suspicious for sigmoid colitis patient is started on Levaquin and Flagyl and being hydrated patient states is feeling little better the pain is improving is not as nauseated, patient Scr is improvng to 2.5 compared to when he arrived 3.5, will continue to gently hydrate the patient, patient urine is also suspicious for UTI so far no growth, will continue Levaquin and follow up on urine culture, will continue to monitor will have PT OT evaluate the patient. Exam Narrative: Elderly frail Patient is comfortable, NAD HEENT: eyes are clear and none icteric LUNGS: Normal respiratory effort ABD: Not distended Lower extremities: no edema SKIN: nonjaundiced Neuro: grossly intact. Objective Data Vital Signs Vital Signs: Vital Signs - 24 hr 03/13/23 14:00 03/13/23 20:00 03/13/23 20:00 Temperature 99.4 F 98.5 F Pulse Rate 66 67 Respiratory Rate 16 18 Blood Pressure 143/59 H 160/68 H Pulse Oximetry 93 95 Oxygen Delivery Room Air 03/13/23 22:00 03/14/23 06:00 03/14/23 08:00 Temperature 97.9 F 97.9 F Pulse Rate 76 66
[2023-03-14] MEDS: SODIUM CHLORIDE 0.9% IV 1,000 ML 50 ML IV CONT (12:04)
[2023-03-14 14:00] VITALS: BP 138/58; PULSE 68; RESP 16; TEMP 37.3; O2SAT 97
[2023-03-14 19:32] VITALS: BP 159/79; PULSE 76; RESP 19; TEMP 37.1; O2SAT 94
[2023-03-14] MEDS: traZODone HCL 50 MG TABLET 100 MG PO (20:07)
[2023-03-14] MEDS: FENOFIBRATE 160 MG TABLET PO (20:07)
[2023-03-14] MEDS: DONEPEZIL HCL 10 MG TABLET PO (20:07)
[2023-03-14] MEDS: MIRTAZAPINE 15 MG TABLET PO (20:07)
[2023-03-14] MEDS: ASPIRIN 81 MG ENTERIC TABLET PO (20:07)
[2023-03-15 03:50] VITALS: BP 133/72; PULSE 67; RESP 19; TEMP 36.7; O2SAT 94
[2023-03-15] MEDS: metroNIDAZOLE 500 MG/ISO 100ML 500 MG/100 ML BAG 100 MG IVPB (05:27)
[2023-03-15 05:45] LABS: Hemoglobin 11.1 g/dL (14.0-18.0); Mean Corpuscular HGB Conc 32.6 g/dl (32-36); Mean Corpuscular Hemoglobin 31.1 pg (26-34); Mean Corpuscular Volume 95.2 fl (80-100); Platelet Count Result 151 k/mm3 (150-375); Red Blood Count 3.57 M/mm3 (4.6-6.20); Red Cell Distribution Width 14.8 % (11.5-14.5); White Blood Count 9.2 K/mm3 (4.5-10.0)
[2023-03-15 06:03] LABS: Anion Gap 5 mmol/L (8-16); Blood Urea Nitrogen 29 mg/dL (9-20); Calcium 8.2 mg/dL (8.4-10.2); Carbon Dioxide 23 mmol/L (22-30); Chloride 112 mmol/L (98-107); Estimated CRCL calculation 22 ml/min; Estimated Glomerular Filt Rate 29; Glucose 92 mg/dL (65-110); Magnesium 1.8 mg/dL (1.6-2.3); Potassium 3.8 mmol/L (3.4-5.0); Sodium 140 mmol/L (137-145)
[2023-03-15] MEDS: amLODIPine BESYLATE 5 MG TABLET PO (08:25)
[2023-03-15] MEDS: ESCITALOPRAM OXALATE 10 MG TABLET PO (08:25)
[2023-03-15] MEDS: cycloSPORINE 0.4 ML OPHTH SOLUTION 1 DROP EACH EYE (08:25)
[2023-03-15] MEDS: ATORVASTATIN 40 MG TABLET PO (08:25)
[2023-03-15] MEDS: FINASTERIDE 5 MG TABLET PO (08:25)
--- NOTE | 2023-03-15 08:38 | PM.DS ---
DS: Admitting Diagnosis Discharge Date 03/15/2023 Admitting Diagnosis Nausea, vomiting and diarrhea DS: Discharge Diagnosis Discharge Diagnosis (1) Diverticulitis: Code(s): K57.92 - Diverticulitis of intestine, part unspecified, without perforation or abscess without bleeding Status: Acute Assessment and Plan: ED-HPI narrative: Patient is a 82-year-old gentleman who presents the emergency department with chief complaint of nausea vomiting and diarrhea.? Patient reports that he has history of chronic kidney disease and reports that today started having large amounts of diarrhea.? The patient states he took 2 doses of Lomotil and was continued to have diarrhea.? Patient reports that he is also felt nauseated has not been able to eat or drink anything.? Patient denies localizing abdominal pain patient does report that he feels very dry and reports that he has not had any urine output. 03/14/2023 interval history: CT scan of abdomen is suspicious for sigmoid colitis patient is started on Levaquin and Flagyl and being hydrated patient states is feeling little better the pain is improving is not as nauseated, patient Scr is improvng to 2.5 compared to when he arrived 3.5, will continue to gently hydrate the patient, patient urine is also suspicious for UTI so far no growth, will continue Levaquin and follow up on urine culture, will continue to monitor will have PT OT evaluate the patient. (2) Elevated lipase: Code(s): R74.8 - Abnormal levels of other serum enzymes Status: Acute Assessment and Plan: Most likely reactive will hydrate the patient and monitor. (3) Acute kidney injury: Code(s): N17.9 - Acute kidney failure, unspecified Status: Acute Assessment and Plan: Patient with acute on chronic kidney disease most likely secondary to dehydration due to poor p.o. intake will gently hydrate the patient and monitor (4) Essential hypertension: Code(s): I10 - Essential (primary) hypertension Status: Acute Assessment and Plan: Continue home regimen and monitor (5) BPH (benign prostatic hyperplasia): Code(s): N40.0 - Benign prostatic hyperplasia without lower urinary tract symptoms Status: Acute Assessment and Plan: Will continue home regimen and monitor DS: Summary Hospital Course Reason for hospitalization: Chief Complaint: Nausea, vomiting and diarrhea Narrative: ED-HPI narrative: Patient is a 82-year-old gentleman who presents the emergency department with chief complaint of nausea vomiting and diarrhea.? Patient reports that he has history of chronic kidney disease and reports that today started having large amounts of diarrhea.? The patient states he took 2 doses of Lomotil and was continued to have diarrhea.? Patient reports that he is also felt nauseated has not been able to eat or drink anything.? Patient denies localizing abdominal pain patient does report that he feels very dry and reports that he has not had any urine output. CT scan of abdomen is suspicious for sigmoid colitis patient started on Levaquin and Flagyl and being hydrated patient states is feeling little better the pain is improving? is not as nauseated, patient urine is also suspicious for UTI will continue Levaquin and follow up on urine culture,? will continue to monitor will have PT OT evaluate the patient. Hospital Course: CT scan of abdomen is suspicious for sigmoid colitis patient is started on Levaquin and Flagyl and being hydrated patient states is feeling little better the pain is improving? is not as nauseated, patient Scr is improvng to 2.5 compared to when he arrived 3.5, will continue to gently hydrate the patient, ? patient urine is also suspicious for UTI so far no growth, will continue Levaquin and follow up on urine culture,? will continue to monitor will have PT OT evaluate the patient. Patient remains clinically stable urine culture no growth so far, will dischar
== END 2023-03-15 11:22 | disposition home or self-care (01) | DRG 392 ==
LOC: ANHED 03-12 05:18 → ANH2MED 03-12 05:59
PROVIDERS: Emergency Medicine; Admitting Provider Internal Medicine; Emergency Provider Emergency Medicine; Visit Provider Family Medicine
DX: K57.92 Diverticulitis of intestine, part unspecified, without perforation or abscess without bleeding (principal); N17.9 Acute kidney failure, unspecified; N18.9 Chronic kidney disease, unspecified; E86.0 Dehydration; N40.0 Benign prostatic hyperplasia without lower urinary tract symptoms; I12.9 Hypertensive chronic kidney disease with stage 1 through stage 4 chronic kidney disease, or unspecified chronic kidney disease; F03.90 Unspecified dementia, unspecified severity, without behavioral disturbance, psychotic disturbance, mood disturbance, and anxiety; Z21 Asymptomatic human immunodeficiency virus [HIV] infection status; Z87.891 Personal history of nicotine dependence; Z88.0 Allergy status to penicillin
CPT/HCPCS: 36415; 74176; 80048; 80053; 81001; 83690; 83735; 85025; 85027; 87086; 93005; 96361; 96365; 96366; 96375; 96376; 97161; 99285; A9270; C9113; G0378; J1956; J2405; J7030

== ENCOUNTER → 2023-03-30 12:59 | Outpatient (CLI) | payer MEDICARE, SELFPAY ==
--- NOTE | ~2023-03-30 | US_ITS ---
Renal-Bladder ultrasound Clinical History: Acute kidney failure Technique: Real-time sonographic imaging of the kidneys and urinary bladder was performed. Findings: The right kidney measures 9.8 cm in length and the left kidney measures 10.2 cm. There is n o hydronephrosis or renal calculus identified. Renal cortical echogenicity is within normal limits. S mall left renal cysts are noted. The urinary bladder is partially distended, somewhat limiting evaluation. Impression: No hydronephrosis. Minimal distention urinary bladder limits evaluation. Reviewed, dictated and finalized at location M. Impression: No hydronephrosis. Minimal distention urinary bladder limits evaluation.
== END ==
PROVIDERS: Visit Provider Internal Medicine Nephrology
DX: N17.9 Acute kidney failure, unspecified (principal); I12.9 Hypertensive chronic kidney disease with stage 1 through stage 4 chronic kidney disease, or unspecified chronic kidney disease; N18.31 Chronic kidney disease, stage 3a
CPT/HCPCS: 76775

== ENCOUNTER 2023-08-17 13:56 | Outpatient (CLI) | payer MEDICARE, SELFPAY ==
--- NOTE | ~2023-08-17 | CT_ITS ---
EXAMINATION: CT shoulder LT wo con DATE: 08/17/2023 14:36 INDICATION: Preoperative planning TECHNIQUE: High resolution computed tomography (CT) of the left shoulder was performed without intrav enous contrast. Additional sagittal and coronal reconstructions were performed. Automated exposure co ntrol and iterative reconstruction technique were employed. The dose-length product was 309.70 mGy-cm . COMPARISON: None FINDINGS: Likely chronic large left rotator cuff tear with cephalad subluxation of the humeral head and severe fatty atrophy of the left subscapularis, supraspinatus and infraspinatus muscle bellies. There is sec ondary cephalad subluxation of the humeral head with respect to the glenoid and associated narrowing of the subacromial space. This also likely chronic given the early remodeling and cystic change along the undersurface of the acromion. No acute fracture. There is glenohumeral osteoarthritis with mild cephalad predominant nonuniform joint space narrowing and 14 x 10 x 11 mm degenerative subarticular c ystic change at the cephalad glenoid. Mild to chronic clavicular osteoarthritis. There is mild volume loss in the left hemithorax with mild left basilar atelectasis. Moderate spondylosis in the visualiz ed cervical and thoracic spine. IMPRESSION: 1. Prominent fatty atrophy of the left subscapularis, supraspinatus and infraspinatus muscle bellies consistent with chronic large rotator cuff tear. 2. Mild left acromioclavicular and glenohumeral osteoarthritis. Reviewed, dictated and finalized at location A. IMPRESSION: 1. Prominent fatty atrophy of the left subscapularis, supraspinatus and infrasp inatus muscle bellies consistent with chronic large rotator cuff tear. 2. Mild left acromioclavicular and glenohumeral osteoarthritis.
== END 2023-08-17 13:57 | disposition home or self-care (01) ==
PROVIDERS: Visit Provider Orthopaedic Surgery
DX: M12.812 Other specific arthropathies, not elsewhere classified, left shoulder (principal); M62.512 Muscle wasting and atrophy, not elsewhere classified, left shoulder
CPT/HCPCS: 73200

== ENCOUNTER 2023-09-09 11:53 | Outpatient (CLI) | payer MEDICARE, SELFPAY ==
[2023-09-09 13:17] LABS: Basophils Absolute Auto 0.1 K/mm3 (0.0-0.1); Basophils Percent Auto 0.6 % (0.2-1.2); Eosinophils Absolute Auto 0.3 K/mm3 (0-0.3); Eosinophils Percent Auto 2.7 % (0-4.4); Hematocrit 37.9 % (42.0-52.0); Immature Granulocyte Absolute 0.03 K/mm3 (0.00-0.031); Immature Granulocyte Percent A 0.3 % (0-0.5); Lymphocytes Absolute Auto 1.81 K/mm3 (0.9-3.2); Lymphocytes Percent Auto 18.9 % (18.3-44.2); Mean Corpuscular HGB Conc 31.7 g/dl (32-36); Mean Corpuscular Hemoglobin 30.9 pg (26-34); Mean Corpuscular Volume 97.7 fl (80-100); Mean Platelet Volume 8.8 fl (7.4-10.4); Monocytes Absolute Auto 0.7 K/mm3 (0.1-0.6); Monocytes Percent Auto 6.9 % (2.6-8.5); Neutrophils Absolute Auto 6.8 K/mm3 (1.3-6.7); Neutrophils Percent Auto 70.6 % (45.5-73.1); Platelet Count Result 143 k/mm3 (150-375); Red Blood Count 3.88 M/mm3 (4.6-6.20); Red Cell Distribution Width 14.8 % (11.5-14.5); White Blood Count 9.6 K/mm3 (4.5-10.0)
[2023-09-09 13:32] LABS: INR 1.1; Prothrombin Time 14.2 Seconds (11.1-14.7)
[2023-09-09 13:33] LABS: Partial Thromboplastin Time 35.9 SECONDS (22.3-36.8)
== END 2023-09-09 11:54 | disposition home or self-care (01) ==
LOC: ANHSURGERY 11:58
PROVIDERS: Anesthesiology; Visit Provider Orthopaedic Surgery
DX: Z01.812 Encounter for preprocedural laboratory examination (principal); M12.812 Other specific arthropathies, not elsewhere classified, left shoulder; N18.32 Chronic kidney disease, stage 3b
CPT/HCPCS: 36415; 85025; 85610; 85730; 87081

== ENCOUNTER 2023-09-28 00:42 | Day surgery (SDC) | payer MEDICARE, SELFPAY ==
[2023-09-09 12:04] VITALS: BMI 24.1
--- NOTE | 2023-09-09 12:34 | PC.NURSE ---
Addendum entered by Lissa Sparks RN 09/09/23 12:53: TAKE AMLODIPINE AT HS NOT AM OF SURGERY Original Note: Report to the Outpatient Waiting Room, entrance under the green pavilion located off [facility], at time __0600 on date __09/28/23 . Planned Procedure Time: _0730 . Time changes happen often and if your time is changed the preop area will call you the afternoon before. - You and your visitor will be asked to self-screen and do not enter if you have any COVID symptoms. - A mask is optional within the hospital at this time. Patients may have clear liquids (water, carbonated beverages, clear teas, apple juice) until 3 hours prior to surgery with a maximum of 20 ounces. - No food from midnight until time of surgery - Infants may have breast milk until 4 hours before surgery, infant formula 6 hours prior to surgery. - Children will be allowed to drink immediately following surgery. If applicable, please bring a bottle or sippy cup to assist with drinking. Juice, water, soda, and popsicles are readily available. For infants on formula, please bring formula the day of surgery. Pacifiers are allowed. Take the following medications with a SIP of water the morning of surgery: ___ALPRAZOLAM IF NEEDED,AMLODIPINE,ESCITALOPRAM, RESTASIS EYE DROP DO NOT STOP ANY OF YOUR OTHER PRESCRIPTION MEDICATIONS PRIOR TO SURGERY ?EXCEPT THE FOLLOWING Medications to discontinue per physician ASPIRIN 7 DAYS PRE OP.LAST DOSE 09/20/23___MULTIVITAMIN 3 DAYS PRE OP.LAST DOSE 09/24/23_ Please no make-up, nail welsh, hairspray, perfume, deodorant, or body powder the day of surgery. No jewelry (including any body piercings) or valuables the day of surgery, leave them at home. Please take a shower or bath the night before, or the morning of, surgery with an antibacterial soap. Wear comfortable, loose fitting clothing. Children are encouraged to wear pajamas. - Jewelry must be removed prior to entering the operating room. Rings and piercings that are not removed may be cut off. - The hospital will not accept responsibility for valuables. - Please leave all valuables, including medications, at home the day of surgery. If you are going home after surgery, a licensed armored truck driver must drive you home. - NO public transportation without another adult if you receive anesthesia. - We recommend that an adult stay with you for 24 hours following discharge. - We also recommend that you do not drive, make important decision, drink alcoholic beverages, or take any drugs that were not prescribed by your health care provider for at least 24 hours after your discharge time. For Pediatric surgeries, we recommend two adults accompany the child home. Follow any additional instructions given to you from your surgeon. If you or anyone in your household have experienced Covid symptoms in the past week, please notify your surgeon or the nurse liaison at the phone number below for possible testing. VERBAL AND WRITTEN instructions given to ___PATIENT and asked if any additional questions and then verbalized understanding. Patient advised to call surgeon office or pre surgery nurse liaison [phone] if any additional questions.
--- NOTE | 2023-09-09 12:44 | PC.NURSE ---
Report to the Outpatient Waiting Room, entrance under the green pavilion located off [facility], at time _0600 on date _09/28/23 . Planned Procedure Time: _0730 . Time changes happen often and if your time is changed the preop area will call you the afternoon before. - You and your visitor will be asked to self-screen and do not enter if you have any COVID symptoms. - A mask is optional within the hospital at this time. Patients may have clear liquids (water, carbonated beverages, clear teas, apple juice) until 3 hours prior to surgery with a maximum of 20 ounces. - No food from midnight until time of surgery - Infants may have breast milk until 4 hours before surgery, formula 6 hours prior to surgery. - Children will be allowed to drink immediately following surgery. If applicable, please bring a bottle or sippy cup to assist with drinking. Juice, water, soda, and popsicles are readily available. For infants on formula, please bring formula the day of surgery. Pacifiers are allowed. Take the following medications with a SIP of water the morning of surgery: _ALPRAZOLAM IF NEEDED ,AMLODIPINE,ESCITALOPRAM, RESTASIS EYE DROPS DO NOT STOP ANY OF YOUR OTHER PRESCRIPTION MEDICATIONS PRIOR TO SURGERY ?EXCEPT THE FOLLOWING Medications to discontinue per physician _ASPIRIN 7 DAYS PRE OP PER DR LAL LAST DOSE 09/20/23. ALL VITAMINS 3 DAYS PRE OP.LAST DOSE 09/24/23 Please no make-up, nail bulgarian, hairspray, perfume, deodorant, or body powder the day of surgery. No jewelry (including any body piercings) or valuables the day of surgery, leave them at home. Please take a shower or bath the night before, or the morning of, surgery with an antibacterial soap. Wear comfortable, loose fitting clothing. Children are encouraged to wear pajamas. - Jewelry must be removed prior to entering the operating room. Rings and piercings that are not removed may be cut off. - The hospital will not accept responsibility for valuables. - Please leave all valuables, including medications, at home the day of surgery. If you are going home after surgery, a licensed crude oil driver must drive you home. - NO public transportation without another adult if you receive anesthesia. - We recommend that an adult stay with you for 24 hours following discharge. - We also recommend that you do not drive, make important decision, drink alcoholic beverages, or take any drugs that were not prescribed by your health care provider for at least 24 hours after your discharge time. For Pediatric surgeries, we recommend two adults accompany the child home. Follow any additional instructions given to you from your surgeon. If you or anyone in your household have experienced Covid symptoms in the past week, please notify your surgeon or the nurse liaison at the phone number below for possible testing. VERBAL AND WRITTEN instructions given to ____PATIENT and asked if any additional questions and then verbalized understanding. Patient advised to call surgeon office or pre surgery nurse liaison [phone] if any additional questions.
[2023-09-09 13:01] VITALS: BP 145/72; PULSE 72; RESP 18; TEMP 37; O2SAT 97
[2023-09-28] VITALS (14 sets, daily range): BP systolic 123–165; BP diastolic 48–76; PULSE 51–72; RESP 12–24; TEMP 35.8–36.8; O2SAT 91–99
--- NOTE | ~2023-09-28 | XR_ITS ---
EXAMINATION: XR shoulder LT min 2V DATE: 09/28/2023 10:26 INDICATION: Total left shoulder arthroplasty. Postop. TECHNIQUE: 2 views of left shoulder were obtained. COMPARISON: Left shoulder radiographs 07/27/2023 FINDINGS: There is a reverse [id number] total left shoulder arthroplasty in near-anatomic alignm ent. No fracture. There is severe acromioclavicular joint osteoarthritis. IMPRESSION: 1. Total left shoulder arthroplasty in near-anatomic alignment. 2. Severe left acromioclavicular joint osteoarthritis. Reviewed, dictated and finalized at location E.
[2023-09-28] MEDS: ACETAMINOPHEN 500 MG TABLET 1000 MG PO ×4 (07:00→23:13)
[2023-09-28] MEDS: TRANEXAMIC ACID 1,000MG/ISO100 1,000 MG/100 ML BAG 200 MG IVPB (07:00)
[2023-09-28] MEDS: LACTATED RINGERS 1,000 ML 30 ML IV CONT ×2 (07:00→10:00)
--- NOTE | 2023-09-28 07:06 | WPDANESEPPF ---
Anes - Initial Pre Proc Eval Procedure: Operation Date: 09/28/23 07:30 Proposed Procedures p Left Reverse Total Shoulder Arthroplasty - Perry Baptiste MD Date/Time: 09/28/23 07:06 Surgeon: Perry Baptiste MD Pre Op Diagnosis: Lt Shoulder Rot Cuff Arthropathy Patient Data Age: 83 Gender: M Height: 1.68 m Weight: 67.8 kg Last Vital Signs Temp 37.0 C 09/09/23 13:01 Pulse 72 09/09/23 13:01 Resp 18 09/09/23 13:01 BP 145/72 H 09/09/23 13:01 Pulse Ox 97 09/09/23 13:01 O2 Del Method Room Air 09/09/23 13:01 Allergies Allergy/AdvReac Type Severity Reaction Status Date / Time Penicillins Allergy Unknown Rash Verified 09/16/23 13:02 Home Medications Medication Instructions Recorded Confirmed Type alfuzosin 10 mg tablet,extended 10 mg PO DAILY 11/27/19 09/16/23 History release 24 hr aspirin 81 mg tablet,delayed 81 mg PO HS 11/27/19 09/16/23 History release (Adult Aspirin Regimen) atorvastatin 40 mg tablet 40 mg PO HS 11/27/19 09/16/23 History donepezil 10 mg tablet 10 mg PO HS 11/27/19 09/16/23 History escitalopram oxalate 10 mg tablet 10 mg PO BID 11/27/19 09/16/23 History (Lexapro) finasteride 5 mg tablet 5 mg PO DAILY 11/27/19 09/16/23 History trazodone 100 mg tablet 100 mg PO HS 11/27/19 09/16/23 History alprazolam 0.5 mg tablet 0.25 mg PO DAILY PRN anxiety 01/20/23 09/16/23 History amlodipine 5 mg tablet 5 mg PO HS 01/20/23 09/16/23 History dolutegravir 50 mg tablet (Tivicay) 25 mg PO DAILY 01/20/23 09/16/23 History doravirine 100 mg tablet (Pifeltro) 100 mg PO DAILY 01/20/23 09/16/23 History mirtazapine 15 mg tablet 15 mg PO HS 01/20/23 09/16/23 History Restasis 1 cap EACH EYE BID 03/12/23 09/16/23 History acetaminophen 650 mg 1,300 mg PO Q12H PRN Pain 09/09/23 09/16/23 History tablet,extended release (Tylenol Arthritis Pain) ezetimibe 10 mg tablet 10 mg PO HS 09/09/23 09/16/23 History lisinopril 40 mg tablet 40 mg PO DAILY 09/09/23 09/16/23 History multivit,Ca,min-iron 8 mg-folic 1 tablet PO DAILY 09/09/23 09/16/23 History acid 200 mcg-lycopene 600 mcg tablet (Centrum Men) Patient hx anesthesia problems: none Family hx anesthesia problems: none Results Review: All pre-operative results and documents have been reviewed as part of the pre-operative evaluation. [facility] Past Medical History Medical History BPH (benign prostatic hyperplasia) Chronic kidney disease Dementia Essential hypertension History of patellar fracture History of retinal tear HIV (human immunodeficiency virus infection) Hyperlipidemia Surgical History Surgical History History of repair of rotator cuff Family History Family History Father Acute myocardial infarction Mother Acute myocardial infarction Nephritis Sibling End stage renal disease Unknown Scoliosis Arthritis Social History Social History Smoking packs per day: 2 Smoking cigarettes per day: 40.0 Years smoked: 27 Smoking pack-years: 54.00 Smoking status: Former smoker Tobacco type: cigarettes Smoking end date: 11/29/86 Alcohol intake: never Substance use: never Substance use type: does not use Lack of Transportation: No Lack of Food: Never True Current Housing: I Have Housing Concerned About Future Housing: No Difficulty Paying Gas/Electric Bills: No Difficulty Paying for Meds: No Currently Unemployed: No Education: Master's Degree or Higher Difficulty w/ Childcare or Family Care: No Living arrangements: alone Gender identity (if verbalized by the patient): Male Spiritual care concerns: No Anes - Eval Final PreProcedure Day of Procedure 09/28/23 07:06 Patient weight: normal Heart: regular rate and rhythm Lungs: cl
--- NOTE | 2023-09-28 07:20 | WPDHPUPDATE1 ---
History and Physical Update Update Date/Time: 09/28/23 07:20 History and Physical has been reviewed, including an updated exam of the patient. There are NO changes in the patient's condition. Risks, benefits, and alternatives have been discussed and questions answered. Patient agrees to proceed with procedure.
[2023-09-28] MEDS: ceFAZolin 2 GM/D5W 50 ML 2 GM/50 ML BAG IVPB ×3 (07:26→22:29)
[2023-09-28] MEDS: VANCOMYCIN HCL 1,000 MG VIAL 1000 MG TOPICAL (08:45)
--- NOTE | 2023-09-28 09:28 | W.PM.PROC2 ---
Procedure Note - Detailed Date of Procedure 09/28/23 Pre-op Diagnosis Lt Shoulder Rot Cuff Arthropathy Post-op Diagnosis Same Procedure Performed Reverse total shoulder arthroplasty, left. Surgeon Perry Baptiste MD Heat And Vent Aircraft Mechanic Humera Tom PA-C Anesthesia General and Regional (Interscalene block.) Findings Severe cuff tear arthropathy. Striking dusky brown discoloration of the humeral and glenoid cartilage. Teres minor intact. Subscapularis attenuated, but repairable with a peel. Tissues somewhat friable. Cephalic vein crossed the deltoid proximally, and was suture ligated. Description of Procedure The patient was given an interscalene block in the preoperative area. Preoperative antibiotics were given. The patient was transferred to the operating room and a general anesthetic was administered. The beach chair position was used at 45 degrees. All bony prominences were padded. The head was carefully stabilized on the [facility] repairer cylinder heads. A sterile prep and drape was performed in the usual manner with ChloraPrep. A longitudinal incision was created at the anterior shoulder just lateral to the deltopectoral interval. Hydrogen peroxide was placed on the incision and then rinsed after one minute. Careful dissection was performed to expose the interval and protect the cephalic vein. The vein was retracted medially. The upper border of the pectoralis was left in situ. Anterior circumflex vessel branches were suture ligated. The biceps was noted to be previously ruptured. A subscapularis peel was performed. The inferior capsule was released, exposing the humeral head. Osteophytes were removed. Care was taken to stay on bone to protect the axillary nerve. The anatomic head cut was taken with the oscillating saw. The guide pin was placed, central drilling performed, and the broach trial inserted. The neck anteversion and inclination were carefully assessed. The cut protector was placed, and attention was turned to the glenoid. Retractors were placed. Releases were carried out for exposure. The subscapularis was mobilized, the inferior capsule and long head of triceps released, and the superior and middle glenohumeral ligaments released as well. Labral tissue was resected as needed. The sizing template was used to assess the baseplate position low on the glenoid. A guide pin was placed. Minimal reaming was used to accomplish a flat surface without violating the subchondral bone. Version was corrected according to preoperative templating. The boss was drilled, and the real component was impacted into position. Supplemental locking screws were placed centrally, superiorly, and inferiorly. The glenosphere was impacted into the taper. The proximal humerus was reamed for the inset component. The humeral components were trialed. The real humeral stem, tray, and insert were impacted into position. The shoulder was copiously irrigated periodically with pulsatile lavage. The shoulder was reduced and stability confirmed. 1 gram of Vancomycin powder was placed in the joint. The subscapularis tendon was repaired. The deltopectoral space was reapproximated with number 1 Vicryl. The remaining tissue was closed with 0 Quill and 2-0 Quill running suture and steri-strips. A sterile silver occlusive dressing and shoulder immobilizer were placed. The patient was transferred to the recovery room. Physician assistant manager, Humera Tom PA-C, required for surgery; including patient positioning, draping, tissue retraction, maintaining instrument position, cement removal, wound closure, and dressing placement. Implants Shoulder Innovations reverse TSA size 0 stem. +0 polyethylene insert. 5 degree baseplate placed at 12 o'clock. 36 + 6 mm glenosphere. Estimated Blood Loss 100 Drains No Pathology None sent Complications No immediate complications Condition Stable Disposition PACU [facility] Billing Surgery - Charge Forward: Surgery Billing
[2023-09-28] MEDS: fentaNYL CITRATE INJ (*CRX) 100 MCG/2 ML VIAL 25 MCG IV PUSH ×6 (09:58→10:22)
[2023-09-28] MEDS: HYDROmorphone HCL INJ (*CRX) 1 MG/ML SYR IV PUSH ×2 (10:39→11:08)
--- NOTE | 2023-09-28 11:45 | PC.NURSE ---
This patient, Francisco Mckeon, was admitted to 3 [facility] Surg Room 304-01. Patient/family oriented to hospital policies and general routines including ID bracelet, bed and alarms, visiting hours, pain management, procedures, bathroom and other care routines, personal items, smoking policy, room service/diet, and visiting hours. Information on how to activate the Rapid Response Team has been discussed. Patient/Family are encouraged to report perceived risks to care and to ask questions if they do not understand what they are told or what they should do.
[2023-09-28] MEDS: SODIUM CHLORIDE 0.9% IV 1,000 ML 125 ML IV CONT (13:38)
[2023-09-28] MEDS: oxyCODONE HCL (*CRX) 5 MG TAB IR PO ×2 (14:25→19:40)
[2023-09-28] MEDS: ASPIRIN 81 MG ENTERIC TABLET PO (17:34)
[2023-09-28] MEDS: SENNA/DOCUSATE SODIUM TABLET 2 TAB PO (17:35)
[2023-09-28] MEDS: amLODIPine BESYLATE 5 MG TABLET PO (19:39)
[2023-09-28] MEDS: FINASTERIDE 5 MG TABLET PO (19:40)
[2023-09-28] MEDS: EZETIMIBE 10 MG TABLET PO (19:40)
[2023-09-28] MEDS: lisinopriL 20 MG TABLET 40 MG PO (19:40)
[2023-09-28] MEDS: ATORVASTATIN 40 MG TABLET PO (19:41)
[2023-09-28] MEDS: ESCITALOPRAM OXALATE 10 MG TABLET PO (19:41)
[2023-09-28] MEDS: DONEPEZIL HCL 10 MG TABLET PO (19:41)
[2023-09-28] MEDS: traZODone HCL 50 MG TABLET 100 MG PO (19:41)
[2023-09-28] MEDS: MIRTAZAPINE 15 MG TABLET PO (19:41)
[2023-09-28] MEDS: FAMOTIDINE 20 MG TABLET PO (19:41)
[2023-09-28] MEDS: cycloSPORINE 0.4 ML OPHTH SOLUTION 1 DROP EACH EYE (19:41)
[2023-09-28] MEDS: ALPRAZolam (*CRX) 0.25 MG TABLET PO (23:12)
[2023-09-29] VITALS: BP 139/58; PULSE 67; RESP 20; TEMP 37; O2SAT 92
[2023-09-29] MEDS: ceFAZolin 2 GM/D5W 50 ML 2 GM/50 ML BAG IVPB (06:13)
[2023-09-29] MEDS: ACETAMINOPHEN 500 MG TABLET 1000 MG PO (06:13)
[2023-09-29 06:29] VITALS: BP 139/60; PULSE 85; RESP 24; TEMP 37.2; O2SAT 90
[2023-09-29 07:21] LABS: Basophils Percent Auto 0.3 % (0.2-1.2); Eosinophils Percent Auto 0.4 % (0-4.4); Hematocrit 30.9 % (42.0-52.0); Hemoglobin 9.6 g/dL (14.0-18.0); Immature Granulocyte Absolute 0.05 K/mm3 (0.00-0.031); Immature Granulocyte Percent A 0.5 % (0-0.5); Lymphocytes Absolute Auto 1.82 K/mm3 (0.9-3.2); Lymphocytes Percent Auto 17.3 % (18.3-44.2); Mean Corpuscular HGB Conc 31.1 g/dl (32-36); Mean Corpuscular Hemoglobin 30.9 pg (26-34); Mean Corpuscular Volume 99.4 fl (80-100); Mean Platelet Volume 10.3 fl (7.4-10.4); Monocytes Percent Auto 9.8 % (2.6-8.5); Neutrophils Absolute Auto 7.5 K/mm3 (1.3-6.7); Neutrophils Percent Auto 71.7 % (45.5-73.1); Platelet Count Result 130 k/mm3 (150-375); Red Blood Count 3.11 M/mm3 (4.6-6.20); Red Cell Distribution Width 15.2 % (11.5-14.5); White Blood Count 10.5 K/mm3 (4.5-10.0)
[2023-09-29 07:23] LABS: Anion Gap 4 mmol/L (8-16); Blood Urea Nitrogen 30 mg/dL (9-20); Calcium 8.6 mg/dL (8.4-10.2); Carbon Dioxide 23 mmol/L (22-30); Chloride 108 mmol/L (98-107); Estimated CRCL calculation 22 ml/min; Estimated Glomerular Filt Rate 30; Glucose 105 mg/dL (65-110); Sodium 135 mmol/L (137-145)
--- NOTE | 2023-09-29 08:22 | PM.DS ---
DS: Admitting Diagnosis Discharge Date 09/29/23 Admitting Diagnosis Rotator cuff arthropathy. DS: Discharge Diagnosis Discharge Diagnosis (1) Status post reverse total arthroplasty of left shoulder: Code(s): Z96.612 - Presence of left artificial shoulder joint Status: Acute Assessment and Plan: Postop day 1: Left reverse total shoulder arthroplasty. Patient tolerated procedure well. No complications. Pain manageable with pain medication. No numbness or tingling. We had a lengthy discussion regarding postoperative wound care, limitations, expectations, and exercises. Patient shows good understanding. He has had initial physical therapy and is tolerating it well. DVT prophylaxis: 81 mg baby aspirin b.i.d. for 14 days. Pain medication: Percocet. Patient has followup appointment with Dr. Baptiste in 3 weeks. DS: Summary Hospital Course Hospital Course: Patient has had initial PT and OT and is tolerating it well. Status at Discharge Functional status at discharge: independent ambulation Overall status at discharge: patient is progressing back to baseline Time Spent with Patient Time attestation: Total time spent providing and/or coordinating discharge services: Exam Narrative: Normal weight male. Resting comfortably in bed. Wearing sling. Dressing dry and intact with no drainage. Mild swelling. No ecchymosis. No erythema. No hematoma. Range of motion limited due to pain. Calf nontender. Neurologic status intact. No varicosities. Distal pulses palpable. DS: Data Data Completed and Pending Labs on day of discharge: Labs from last 24 hours 09/29/23 06:32 WBC 10.5 H RBC 3.11 L Hgb 9.6 L Hct 30.9 L MCV 99.4 MCH 30.9 MCHC 31.1 L RDW 15.2 H Plt Count 130 L MPV 10.3 Immature Gran % (Auto) 0.5 Neut % (Auto) 71.7 Lymph % (Auto) 17.3 L [place] % (Auto) 9.8 H Eos % (Auto) 0.4 Baso % (Auto) 0.3 Lymph # (Auto) 1.82 [place] # (Auto) 1.0 H Eos # (Auto) 0.0 Baso # (Auto) 0.0 Abs Immat Gran (auto) 0.05 H Absolute Neuts (auto) 7.5 H Absolute Nucleated RBC 0.0 Nucleated RBC % 0.0 Sodium 135 L Potassium 4.0 Chloride 108 H Carbon Dioxide 23 Anion Gap 4 L BUN 30 H Creatinine 2.10 H Estim Creat Clear Calc 22 Estimated GFR 30 L Glucose 105 Calcium 8.6 Discharge Plan Discharge Patient Disposition: Home, Self-Care Discharge Instructions: See green instruction sheets Patient Instructions: Shoulder Arthroplasty (DC) Stand Alone Forms: General Discharge Instructions Follow-up/Referrals: Humera Tom PA [Physician Braille Translator] - Discharge Medications: New aspirin 81 mg tablet,delayed release (DR/EC) 81 mg PO BID 14 Days Qty: 28 0RF oxycodone-acetaminophen 5-325 mg tablet 1 - 2 tablet PO Q4-6H MDD 6 PRN (Reason: pain) Qty: 30 0RF Continued escitalopram oxalate [Lexapro] 10 mg tablet 10 mg PO BID Patient Comments: takes at 9 am and 9 pm alfuzosin 10 mg tablet extended release 24 hr 10 mg PO DAILY Patient Comments: takes at 9 pm finasteride 5 mg tablet 5 mg PO DAILY Patient Comments: pt takes at 9 pm atorvastatin 40 mg tablet 40 mg PO HS Patient Comments: takes at bedtime trazodone 100 mg tablet 100 mg PO HS donepezil 10 mg tablet 10 mg PO HS aspirin [Adult Aspirin Regimen] 81 mg tablet,delayed release (DR/EC) 81 mg PO HS amlodipine 5 mg tablet 5 mg PO HS Patient Comments: takes at 9 pm alprazolam 0.5 mg tablet 0.25 mg PO DAILY PRN (Reason: anxiety ) mirtazapine 15 mg tablet 15 mg PO HS Tivicay 50 mg tablet 25 mg PO DAILY Patient Comments: takes at 9 am Pifeltro 100 mg tablet 100 mg PO DAILY Patient Comments: takes at 9 am Restasis 1 cap EACH EYE BID Patient Comments: 1 capsule has about 8 drops for each eye lisinopril 40 mg tablet 40 mg PO
[2023-09-29 08:53] VITALS: BP 148/52; PULSE 69; RESP 18; TEMP 37.1; O2SAT 95
[2023-09-29] MEDS: SENNA/DOCUSATE SODIUM TABLET 2 TAB PO (08:57)
[2023-09-29] MEDS: THERAPEUTIC MULTIVITAMINS/MINERALS TAB (*BKC) 1 TABLET PO (08:57)
[2023-09-29] MEDS: polyethylene glycoL 3350 17 GM POWD.PACK PO (08:57)
[2023-09-29] MEDS: FAMOTIDINE 20 MG TABLET PO (08:57)
[2023-09-29] MEDS: ESCITALOPRAM OXALATE 10 MG TABLET PO (08:57)
[2023-09-29] MEDS: ASPIRIN 81 MG ENTERIC TABLET PO (08:57)
[2023-09-29] MEDS: cycloSPORINE 0.4 ML OPHTH SOLUTION 1 DROP EACH EYE (08:57)
--- NOTE | 2023-09-29 09:00 | P.PNAN_ITS ---
Anes - Prog Note Post-Op Date/Time: 09/29/23 09:00 Cardiovascular status: normal Respiratory status: normal Airway patency: baseline Mental status: baseline Post-Op hydration status: normal Vital Signs: Last Vital Signs Temp 98.7 F 09/29/23 08:53 Pulse 69 09/29/23 08:53 Resp 18 09/29/23 08:53 BP 148/52 H 09/29/23 08:53 Pulse Ox 95 09/29/23 08:53 O2 Del Method Room Air 09/28/23 20:00 O2 Flow Rate 2 09/28/23 11:15 Pain Score (VAS): 0/10 I/O: Intake & Output 09/28/23 09/29/23 09/29/23 23:59 07:59 15:59 Intake Total 1090 Balance 1090 Laboratory Tests 09/29/23 06:32 09/29/23 06:32 09/29/23 06:32 WBC 10.5 H RBC 3.11 L Hgb 9.6 L Hct 30.9 L MCV 99.4 MCH 30.9 MCHC 31.1 L RDW 15.2 H Plt Count 130 L MPV 10.3 Immature Gran % (Auto) 0.5 Neut % (Auto) 71.7 Lymph % (Auto) 17.3 L [place] % (Auto) 9.8 H Eos % (Auto) 0.4 Baso % (Auto) 0.3 Lymph # (Auto) 1.82 [place] # (Auto) 1.0 H Eos # (Auto) 0.0 Baso # (Auto) 0.0 Abs Immat Gran (auto) 0.05 H Absolute Neuts (auto) 7.5 H Absolute Nucleated RBC 0.0 Nucleated RBC % 0.0 Sodium 135 L Potassium 4.0 Chloride 108 H Carbon Dioxide 23 Anion Gap 4 L BUN 30 H Creatinine 2.10 H Estim Creat Clear Calc 22 Estimated GFR 30 L Glucose 105 Calcium 8.6 Post-procedural complaints: none Patient Feedback: Patient satisfied with anesthetic care.
--- NOTE | 2023-09-29 09:00 | PCPTNOTE ---
Attempted therapy treatment, Pt eating breakfast. Will attempt again.
--- NOTE | 2023-09-29 14:51 | PCCCNOTE ---
On 09/29/23, the student, Antionette Hays, provided care and completed [facility] documentation on this patient. I have reviewed the student's documentation and agree with the findings.
== END 2023-09-29 11:55 | disposition home or self-care (01) ==
LOC: ANHSURGERY 07:25 → ANH3MEDSUR 11:28
PROVIDERS: Physician Assistant Surgical; Visit Provider Orthopaedic Surgery
PROC: (CPT 23472; principal; 2023-09-28 07:30)
DX: M75.102 Unspecified rotator cuff tear or rupture of left shoulder, not specified as traumatic (principal); M12.812 Other specific arthropathies, not elsewhere classified, left shoulder; I12.9 Hypertensive chronic kidney disease with stage 1 through stage 4 chronic kidney disease, or unspecified chronic kidney disease; N18.9 Chronic kidney disease, unspecified; E78.5 Hyperlipidemia, unspecified; N40.0 Benign prostatic hyperplasia without lower urinary tract symptoms; F03.90 Unspecified dementia, unspecified severity, without behavioral disturbance, psychotic disturbance, mood disturbance, and anxiety; Z87.891 Personal history of nicotine dependence; Z79.82 Long term (current) use of aspirin; Z82.49 Family history of ischemic heart disease and other diseases of the circulatory system; Z21 Asymptomatic human immunodeficiency virus [HIV] infection status
CPT/HCPCS: 23472; 36415; 73030; 80048; 85025; 85610; 85730; 86850; 86900; 86901; 87081; 97110; 97116; 97161; 97165; 97530; 97535; A4565; A9270; C1776; J0171; J0690; J1100; J1170; J1885; J2270; J2371; J2405; J2704; J2795; J3010; J3370; J7030; J7120

== ENCOUNTER 2023-10-15 10:44 | Outpatient (CLI) | payer MEDICARE, SELFPAY ==
--- NOTE | ~2023-10-15 | XR_ITS ---
Left Shoulder Technique: AP and scapular Y views were obtained. Clinical History: Status post arthroplasty, pain COMPARISON: 09/28/2023 Findings: No fracture or dislocation is seen. Reverse shoulder arthroplasty hardware is unchanged. No definite hardware complication is evident. Soft tissues are unremarkable. Impression: No acute abnormality. Left shoulder arthroplasty hardware is unchanged. Reviewed, dictated and finalized at location . O ENGINEERING TEACHER Impression: No acute abnormality. Left shoulder arthroplasty hardware is unchanged.
== END 2023-10-15 10:45 | disposition home or self-care (01) ==
PROVIDERS: Visit Provider Orthopaedic Surgery
DX: Z96.612 Presence of left artificial shoulder joint (principal)
CPT/HCPCS: 73030

== ENCOUNTER 2023-11-13 14:03 | Outpatient (CLI) | payer MEDICARE, SELFPAY ==
--- NOTE | ~2023-11-13 | XR_ITS ---
EXAM: XR shoulder LT min 2V DATE: 11/13/2023 14:20 HISTORY: Z47.1 - Aftercare, joint replacement surgery . COMPARISON: 10/15/2023. FINDINGS: Uncomplicated appearing left shoulder arthroplasty hardware. Decreased mineralization. No fracture or dislocation. No lytic or blastic lesion. No erosion or periosteal change. Senescent solorzano e in the visualized lung, with low volume and crowding. Left costophrenic angle blunting. IMPRESSION: Small pleural effusion versus chronic pleural scarring. No radiographic evidence of hardware-related complication. Reviewed, dictated and finalized at location K. R INSTRUCTOR
--- NOTE | ~2023-11-13 | XR_ITS ---
EXAM: XR shoulder RT min 2V DATE: 11/13/2023 14:20 HISTORY: M25.511 - Pain in right shoulder . COMPARISON: 08/25/2023, images only. FINDINGS: Decreased mineralization. No fracture or dislocation. No lytic or blastic lesion. Moderate degenerative change in the AC joint. Severe degenerative change of the glenohumeral joint. Severe costello bacromial narrowing as can be seen with rotator cuff pathology. Calcification in the superior cuff. N o erosion or periosteal change. Senescent changes in the lungs, with low volume and crowding. 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 Likely rotator cuff patho logy, including calcific tendinitis. Reviewed, dictated and finalized at location K. 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 Lik horace rotator cuff pathology, including calcific tendinitis.
== END 2023-11-13 14:04 | disposition home or self-care (01) ==
PROVIDERS: Visit Provider Orthopaedic Surgery
DX: M19.011 Primary osteoarthritis, right shoulder (principal); M75.31 Calcific tendinitis of right shoulder; Z47.1 Aftercare following joint replacement surgery
CPT/HCPCS: 73030

== ENCOUNTER 2024-12-19 10:03 | Outpatient (CLI) | payer MEDICARE, SELFPAY ==
--- NOTE | 2024-12-19 | EST_ITS ---
Patient Info Name: Francisco Mckeon Age: 84 years : 1940 Gender: Male Ht: 67 in Wt: 140 lbs BSA: 1.73 m2 HR: 67 bpm BP: 155 / 68 mmHg Exam Date: 12/19/2024 11:01 AM Exam Location: Echo Lab Patient Status: Outpatient Admit Date: 12/19/2024 Staff Ordering Physician: Braxton Brannon MD Attending Provider: Braxton Brannon MD Exercise Technologist: Inna Rich [facility] Nurse: Keyona Eckert APN Exam Type: CA stress mabel w NM Study Info A regadenoson stress test was performed. Summary 1. Sinus rhythm with left anterior superior hemiblock. 2. No ST segment abnormalities noted following Lexiscan injection. 3. Myocardial perfusion imaging exam to be reported by Radiology. Protocol: Lexiscan Stress ECG Details Stage: REST Duration (min): 1 min : 8 sec HR (bpm): 59 SBP (mmHg): 155 DBP (mmHg): 68 Stage: REST Duration (min): 11 min : 42 sec HR (bpm): 54 SBP (mmHg): 155 DBP (mmHg): 68 Stage: REST Duration (min): 14 min : 40 sec HR (bpm): 54 SBP (mmHg): 155 DBP (mmHg): 68 Stage: STAGE 1 Duration (min): 1 min : 0 sec HR (bpm): 71 SBP (mmHg): 156 DBP (mmHg): 75 Stage: RECOVERY Duration (min): 1 min : 0 sec HR (bpm): 66 SBP (mmHg): 156 DBP (mmHg): 75 Stage: RECOVERY Duration (min): 2 min : 0 sec HR (bpm): 66 SBP (mmHg): 156 DBP (mmHg): 75 Stage: RECOVERY Duration (min): 3 min : 0 sec HR (bpm): 66 SBP (mmHg): 161 DBP (mmHg): 74 Stage: RECOVERY Duration (min): 3 min : 47 sec HR (bpm): 66 SBP (mmHg): 161 DBP (mmHg): 74 Rest HR: 54 bpm Peak HR: 71 bpm Rest Sys BP: 155 mmHg Peak Sys BP: 161 mmHg Max Pred HR: 136 bpm % Max Pred HR: 52 % Target HR: 116 bpm Max RPP: 11,431 bpm*mmHg Termination Reason: Completed protocol Total Time: 1 min : 0 sec Rest Askew BP: 68 mmHg Peak Askew BP: 74 mmHg Total Dose: 0.4 mg Resting ECG Sinus rhythm with left anterior superior hemiblock. Stress ECG No ST segment abnormalities noted following Lexiscan injection. Report Signatures
--- NOTE | ~2024-12-19 | NM_ITS ---
EXAMINATION: NM mabel stress w perfusion DATE: 12/19/2024 12:11 INDICATION: Shortness of breath on exertion. TECHNIQUE: Rest images were obtained following intravenous administration of 10.4 mCi Tc99m tetrofosm in (Myoview). The patient was infused intravenously with Lexiscan (regadenoson). Then, 11.17 mCi Tc99 m tetrofosmin (Myoview) was administered intravenously, and stress images were obtained. Data was rec onstructed into short axis and horizontal and vertical long axis SPECT images. Gated SPECT images wer e also obtained. COMPARISON: None. FINDINGS: There is no definite reversible or fixed perfusion abnormality to suggest ischemia or infar ction. There is no segmental wall motion abnormality. Left ventricular ejection fraction measures 5 1%. IMPRESSION: 1. No definite ischemia or infarct. 2. Normal left ventricular ejection fraction measuring 51%. Reviewed, dictated and finalized at location B. TIONAL PLACEMENT SPECIALIST
== END 2024-12-19 10:04 | disposition home or self-care (01) ==
DX: R06.02 Shortness of breath (principal)
CPT/HCPCS: 78452; 93017; A9502; J2785

== ENCOUNTER 2025-10-09 12:47 | Outpatient (CLI) | payer MEDICARE, BC, SELFPAY ==
--- OUTSIDE RECORDS SUMMARY | 2010-08-27 04:45 | XMS_ITS | Continuity of Care Document ---
Author Organization [facility] Address [id number] [place] [address] [address] [place] [address] Phone Care Team Providers Care Certified Hyperbaric Technologist Name Role Phone Semaj Merrill Unavailable Unavailable Procedures Procedure Date Office/outpatient Visit, Est Office/outpatient Visit, Est No Script Eye Exam Established Pt Ophthalmoscopy, Subsequent Ophthalmoscopy, Subsequent Eye Exam & Treatment No Script Office/outpatient Visit, Est Eye Exam Established Pt Eye Exam Established Pt Office/outpatient Visit, Est Visual Functional Status Assessed Office/outpatient Visit, Est Post-op Follow-up Visit Office Consultation Explore/irrigate Tear Ducts Advance Directives Directive Yes / No Effective Date File Name No Information Encounters Encounter Description Practice Location Reason(s) For Visit Diagnoses Date Provider Providers Copied on Encounter Office/outpati ent Visit, [facility], [address], [place], [place], [id number], [place] tel:[phone] [facility] No Information Jul- 0 Garfield Cha. [address] , [address], [place], [address], [place]. tel:[phone] Office/outpati ent Visit, [facility], [address], [place], [place], [id number], [place] tel:[phone] [facility] No Information Nov-0 4-200 9 Garfield Cha. [address] , [address], [place], [place], [facility], . tel:[phone] [facility], [address], [place], [place], [address], [place] tel:[phone] [facility] No Information May-1 8-200 9 Milan Campo. [address] [facility], [place], [place], [facility], [place]. tel:[phone] Referring Provider: Semaj Issa, [address], [place], [place], [facility]. tel:[phone] [facility], [address], [place], [place], [id number], [place] tel:[phone] [facility] No Information May-0 6-200 9 Garfield Cha. [address], [place], [place], [facility], [place]. tel:[phone] Office/outpati ent Visit, [facility], [address], [place], [place], [id number], [place] tel:[phone] [facility] No Information Dec-2 3-200 8 Elizabeth Gomez. [address] , [address], [place], [facility], [place]. tel:[phone] [facility], [address], [place], [place], [address], [place] tel:[phone] [facility] No Information Dec-0 9-200 8 Elizabeth Gomez. [address] , [address], [place], [facility], [place]. tel:[phone] [facility], [address], [place], [place], [address], [place] tel:[phone] [facility] No Information Feb-3 0-200 8 Garfield Cha. [address] [facility] [address] [facility] , [address], [place], [address], [place]. tel:[phone] Office/outpati ent Visit, [facility], [address], [place], [place], [address], [place] tel:[phone] [facility] No Information Aug-2 4-200 7 Garfield Cha. [address] , [address], [place], [address], [place]. tel:[phone] Office/outpati ent Visit, [facility], [address], [place], [place], [address], [place] tel:[phone] [facility] No Information Feb-1 8-200 7 Garfield Cha. [address] [facility] [address] , [address], [place], [facility], [place]. tel:[phone] [facility], [address] [place] [address] [address], [place], [place], [address], [place] tel:[phone] [facility] No Information Mar-0 7-200 7 Garfield Cha. [address] , [address], [place], [facility], [place]. tel:[phone] Office Consultation [facility], [address], [place], [place], [address], [place] tel:[phone] SEC [facility]en No Information 5-200 7 Hay Francis. [address] [facility], [address], [place], [place], [address], [place]. tel:[phone] Referring Provider: Semaj Issa, [address], [place], [place], [facility]. tel:[phone] Family History Family Member Type Diagnosis Age At Onset No Information Payers Payer name Insurance type Covered alliance party ID Authoriza tion(s) Medicare [place] CI [id number] [facility] Commercial CI [id number] Social History Type Description Quantity Date Captured Comments Sex Male Smoking Status No Information Chief Complaint And Reason For Visit No Information Reason For Referral Reason For Referral No Information History Of Present Illness Encounter Date Complaint History Of Prese nt Illness No Information Functional Status Date Functional Assessmen t No Information Instructions Date Instruction Additional Infor mation No Information Assessments Type Assessment Date No Information Patient Care Teams Name Effective Dates (start - stop) Status Members No Information
--- OUTSIDE RECORDS SUMMARY | 2024-04-19 06:00 | XMS_ITS ---
Author Organization [facility] Address [address] [place] [phone] Care Team Providers Care Hydrometeorology Teacher Name Role Phone Braxton Brannon Primary Care Provider REASON FOR VISIT 3 month f/u Social History Sex Assigned At : Social History Observation Description Sex Assigned At Male Encounters Encounter Location Date Provider Diagnosis [address] [address] 04/19/2024 Braxton Brannon Plan Of Treatment Next Appt Details Provider Name:Braxton haley, 10/31/2025 12:00:00 PM, [address] [place] [address], [phone], Progress Notes * Francisco KELLY EDOB: 0 (85 yo M)Acc No.[id number]:04/19/2024 Progress Notes Patient: Evaristo ABDI Francisco Serna Provider: Samanta Brannon MD, FACP, AAHIVS :1940 A ge:84 Y S ex:Male Date:04/19/2024 Address:Count includes the [facility] [address], [address], [id number] Subjective: * Chief Complaints: * 1 . 3 month f/u. * Active Problem List E78.4 Other hyperlipidemia Modified On:3Clinical Status:0 F32.9 Major depressive dis order, single episode, unspecified Clinical Status:0 I10 Essential (primary) hypertension Modified On:3Clinical Status:0 J30.9 Allergic rhinitis, u nspecified Modified On:04/07/2023linical Status:0 K21.9 Gastro-esophageal re flux disease without esophagitis Modified On:04/07/2023linical Status:0 M71.9 Bursopathy, unspecif ied Modified On:10/11/2018Clinical Status:0 N40.1 Enlarged prostate wi th lower urinary tract symptoms Modified On:04/07/2023linical Status:0 R41.3 Other amnesia Modified On:07/22/2016Clinical Status:0 F32.9 Depressive disorder, not elsewhere classified Modified On:10/11/2018Clinical Status:0 E78.5 Other and unspecifie d hyperlipidemia Modified On:10/11/2018Clinical Status:0 M19.90 Osteoarthrosis Modified On:10/11/2018Clinical Status:0 K21.9 Esophageal reflux Modified On:10/11/2018Clinical Status:0 N40.0 BPH w/o urinary obs/ LUTS Modified On:10/11/2018Clinical Status:0 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 Modified On:10/11/2018Clinical Status:0 Z00.00 Routine general medi margarita examination at a health care facility Modified On:10/11/2018Clinical Status:0 Z79.899 Encounter for long-t erm (current) use of other medications Modified On:10/11/2018Clinical Status:0 J30.9 Allergic rhinitis, c ause unspecified Modified On:10/11/2018Clinical Status:0 I10 Unspecified essentia l hypertension Modified On:10/11/2018Clinical Status:0 B34.9 Viral infection Modified On:10/11/2018Clinical Status:0 K14.8 Other specified cond itions of the tongue Modified On:10/11/2018Clinical Status:0 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 Modified On:10/11/2018Clinical Status:0 H04.123 Dry eyes Modified On:04/07/2023W/U Status:confirmed 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 Modified On:04/07/2023W/U Status:confirmed G47.19 Excessive daytime sl eepiness Modified On:04/07/2023/U Status:confirmed R63.0 Poor appetite Modified On:05/21/2022 Status:confirmed E78.00 Hypercholesterolemia Modified On:04/07/2023 Status:confirmed B20 Human immunodeficien cy virus (HIV) Modified On:12/02/2023 Status:confirmed N28.9 Renal insufficiency Modified On:08/24/2024 Status:confirmed Z23 Encounter for immuni zation Modified On:08/24/2024 Status:confirmed M54.6 Midline thoracic tristan k pain, unspecified chronicity Modified On:08/24/2024 Status:confirmed 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 Modified On:12/01/2024 Status:confirmed 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
--- OUTSIDE RECORDS SUMMARY | 2024-11-23 09:30 | XMS_ITS ---
Author Organization [facility] Address [address] [place] [phone] Care Team Providers Care Labor Gang Supervisor Name Role Phone Braxton Brannon Primary Care Provider REASON FOR VISIT per Dr Brannon Social History Sex Assigned At : Social History Observation Description Sex Assigned At Male Encounters Encounter Location Date Provider Diagnosis [address] [address] 11/23/2024 Braxton Brannon Plan Of Treatment Next Appt Details Provider Name:Braxton haley, 10/31/2025 12:00:00 PM, [address] [place] [address], [phone], Progress Notes * Francisco KELLY EDOB: 0 (85 yo M)Acc No.[id number]:11/23/2024 Progress Note Patient: Evaristo JIN Francisco Serna Provider: Samanta Brannon MD, FACP, AAHIVS :1940 A ge:84 Y S ex:Male Date:11/23/2024 Address:[facility] [address], [address], [id number] Subjective: * Chief Complaints: * [address]annon. 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
--- OUTSIDE RECORDS SUMMARY | 2024-12-25 04:45 | XMS_ITS ---
Author Organization [facility] Address [address] [place] [phone] Care Team Providers Care Data Processing Operator Name Role Phone Braxton Brannon Primary Care Provider [phone] REASON FOR VISIT 4 month f/u Social History Sex Assigned At : Social History Observation Description Sex Assigned At Male Encounters Encounter Location Date Provider Diagnosis [address] [phone] 12/25/2024 Braxton Brannon Plan Of Treatment Next Appt Details Provider Name:Braxton haley, 10/31/2025 12:00:00 PM, [address] [place] [address], [phone], Progress Notes * Francisco KELLY EDOB: 0 (85 yo M)Acc No.[id number]:12/25/2024 Follow-Up Patient: Francisco MENJIVAR Provider: Samanta Brannon MD, FACP, AAHIVS :1940 A ge:84 Y S ex:Male Date:12/25/2024 Address:[facility] [address], [address], [id number] Subjective: * Chief Complaints: Objective: Assessment: Plan: * Billing Information: * Visit Code: * Procedure Codes: * Electronic signature of Francis Brannon MD, FACP on 10/09/2025 at 12:56 PM DIRECT SUPPORT SPECIALIST Sign off status: Pending * Provider: Samanta Brannon MD, FACP, AAHIVS Date: 0 12/25/2024 Generated for Eben villar/Jose/Anthonyitting on: 1 12/09/2024 12:56 PM DIRECT SUPPORT SPECIALIST
--- NOTE | ~2025-10-09 | XR_ITS ---
EXAMINATION: Right hip injection INDICATION: Right hip pain. COMPARISON: None TECHNIQUE: 1 fluoroscopic images of the right hip were obtained during procedure. Fluoroscopy exposure time was 12 seconds. DAP 0.604 mGym2. PROCEDURE: Informed consent and timeout performed in the usual manner. The right hip was prepped and draped in sterile fashion. After local infiltrative 1% lidocaine injected, 3.5 inch 22-gauge spinal needle was advanced to the lateral right femoral neck and location confirmed with injection of contrast. 4 cc of lidocaine and 40 mg of Depo-Medrol were then injected into the joint space. No immediate complication. FINDINGS/IMPRESSION: Patient status post right hip steroid injection. Fluoroscopic documentation of . Please refer to the operative note for complete procedural details. Reviewed, dictated and finalized at location A. [facility]
--- OUTSIDE RECORDS SUMMARY | 2025-10-09 12:57 | XMS_ITS | Data Portability ---
Author Organization [place] [facility], Main Office Address [address] [place] [address] Care Team Providers Care Metal Pourer Name Role Phone AMANDA HEDRICK Primary Care Provider AMANDA BARNETT Referring Provider [phone] Assessment Encounter Date Assessment Date Assessment LastModified by Organization Details LastModified Time 05/30/2025 05/30/2025 HPI: 85 year old male presents today for evaluation of right shoulder pain. Pain is chronic and secondary to osteoarthritis. He has been seeing a provider at [facility] who is now not in network with his insurance. Treatment has been conservative management with physical therapy and injections. His last injection was Sep 2024, which provided him relief for 2 to 3 months. Pain is intermittent, but past couple of days, the pain has become more severe, describing it as sharp pain and rating it 9/10. Takes Tylenol and tramadol for pain, unable to take NSAIDs due to kidney disease. Hx of left shoulder replacement. ROS: Per patient questionnaire Physical Exam: General: Normal appearance. No acute distress. Inspection: No evidence of swelling, erythema, bruising or deformity. Palpation: Nontender to palpation ROM: 100/30/ back pocket. Pain with ROM Special Test: Positive Chavarria-Fletcher and Neers Tests, Positive Empty Can test, Negative Drop Arm. Negative ER Lag. Negative IR lag. Motor: 4/5 strength. Sensation: Sensation intact. Imaging: Xray reviewed. No fractures or other bony abnormalities. Severe glenohumeral and acromiohumeral joint space lost with osteophytes and subchondral sclerosis. He has elevation of the humeral head and acetabularization of the underside of the acromion Assessment & Plan: He is not interested in a shoulder replacement, we will continue to treat with conservative management. Injection given today. Patient tolerated injection. Patient will monitor site for signs of infection and report any adverse side effects. Rx for Voltaren Gel. unable to take NSAIDs due to kidney disease. Follow Up: As needed for shoulder. Will schedule an appt to discuss right hip pain All questions were answered. Patient verbalized understanding of treatment plan [email or web address] Not available 05/30/2025 16:40:09 06/13/2025 06/13/2025 85-year-old male presents for evaluation of his right hip. He reports longstanding hip pain that has been progressively getting worse. He says it is due to aging. He has pain with getting up and walking, and when doing prolonged activities. He has symptoms at the beginning and at the end of the day. He currently rates his pain as 4/10. He has not had any treatments for this. Pain is located in the posterior hip around the buttocks. Review of systems per patient questionnaire Physical exam: Has tenderness palpation over the hamstring insertion, also some soreness over the lateral hip. No tenderness over the groin. No pain with logroll. He has flexion 110, internal rotation 20, external rotation 30. Negative Stinchfield. Negative straight leg raise. X-rays were reviewed, demonstrating mild to moderate degenerative changes His primary complaint is tenderness over the hamstring insertion. We will send physical therapy to work on this. He also has some degenerative changes of the hip although not really limited in range of motion or strength. We will send him to PT for that as well. He may follow-up with us as needed. If he has persistent symptoms, we can consider getting a cortisone injection next time. [email or web address] Not available 06/13/2025 13:56:58 08/22/2025 08/22/2025 HPI: 85 year old male presents today for reevaluation of right hip pain. Treatment has included physical therapy, Tylenol, and tramadol with minimal relief. Physical therapy provided him with a walker, which he reports has somewhat relieved his pain and improved his ability to walk. Pain is located in the posterior hip. Currently rates pain as 5/10. He does have associated back pain. Denies paresthesia. Physical Exam: General: Normal appearance. No acute distress. Uses walker Inspection: No evidence of swelling, erythema, bruising or deformity. Palpation: Tenderness over the SI joint and ischial tuberosity ROM: flexion 110, internal rotation 20, external rotation 30. Motor: 4/5 strength. Sensation: Sensation intact. Assessment & Plan: He has minimal improvement with physical therapy; the next step would be a fluoro guide injection. Discussed that the hip injection is diagnostic and therapeutic, and that a positive response to a hip injection may suggest intra-articular pathology. Follow Up: 6 weeks. All questions were answered. Patient verbalized understanding of treatment plan [email or web address] Not available 08/22/2025 13:39:53 09/03/2025 09/03/2025 HPI: 85 year old male presents today for evaluation of right shoulder pain. Pain is chronic and secondary to osteoarthritis. He was last evaluated for the shoulder on May 30 treatment plan included a cortisone injection, which provided relief until a couple of weeks ago. Previous treatment has included physical therapy. Pain is intermittent, currently rating it as 3/10. Takes Tylenol and tramadol for pain, unable to take NSAIDs due to kidney disease. Hx of left shoulder replacement. He would like to proceed with an injection today. Physical Exam: General: Normal appearance. No acute distress. Presents with walker Inspection: No evidence of swelling, erythema, bruising or deformity. Palpation: Nontender to palpation ROM: 110/30/ back pocket. Pain with ROM Motor: 4/5 strength. Sensation: Sensation intact. Assessment & Plan: He is not interested in a shoulder replacement; we will continue to treat with conservative management. Injection given today. Patient tolerated the injection. Patient will monitor the site for signs of infection and report any adverse side effects. Discussed trying Voltaren Gel. Unable to take NSAIDs due to kidney disease. He has not heard from anyone about scheduling a fluoroscopy-guided hip injection. Referral printed and phone number was highlighted, and he was instructed to call. Follow Up: As needed for the shoulder. Can get an injection every 3 months. All questions were answered. Patient verbalized understanding of treatment plan [email or web address] Not available 09/04/2025 20:45:50 Plan of Treatment Reminders Order Date Submit Date Provider Last Modified By Organization Details Last Modified Time Details Appointments None recorded. Lab None recorded. Referral physical therapist referral - Please schedule pt for R hip/hamstr ings 2024 025 [facility] [place], [address], [place], [address], 11:26:51 Procedures injection/ aspiration joint/burs a (PROC) 2024 025 [email or web address] In-Office Order, Internal Use Only DO Not Attach Compendium DO Not Attach Compendium, Do Not Delete/merge, [id number] 14:42:17 injection, hip, fluoro guidance (PROC) - 4cc 1% Lidocaine & 40mg Depomedrol Precertifi cation Required?: N 2024 [facility], [address], [place], [address], 14:55:22 injection/ aspiration joint/burs a (PROC) 2024 [email or web address] 1 In-Office Order, Internal Use Only DO Not Attach Compendium DO Not Attach Compendium, Do Not Delete/merge, [id number] 15:47:45 Surgeries None recorded. Imaging XR, hip + pelvis, unilateral , 2 or 3 view 2024 025 [email or web address] [facility] [place], [address], [place], [address], 5 18:59:25 XR, shoulder, 2 or more view 2024 025 [email or web address] [place], [address], [place], [address], 5 18:49:47 Medication Orders bupivacain e HCl 0.5 % (5 mg/mL) injection solution 2024 [facility], [address], [place], [address], 21:30:55 Kenalog 10 mg/mL suspension for injection 2024 025 [facility] [address], [address] [facility], [place], [address], 21:30:55 Voltaren Arthritis Pain 1 % topical gel 2024 025 [email or web address] [facility] [address], [address], [place], [address], 5 18:49:47 bupivacain e HCl 0.5 % (5 mg/mL) injection solution 2024 025 [facility], [address], [place], [address], 5 17:08:42 Kenalog 10 mg/mL suspension for injection 2024 025 [facility], [address] [facility], [place], [address], 5 17:08:42 Patient TargetsNo targets recorded. Patient InstructionsNo instructions recorded. Reason for Referral Physical Therapist Referral for Pain of hip region R hip/hamstrings Please schedule pt for R hip/hamstrings Referring Physician: Amanda Barnett, Orthopedic Surgery, Encounter Date: 06/13/2025 Results Created Date Observation Date Name Description Value Unit Range Abnormal Flag Note LastModifiedBy Organization Detail LastModifiedTime 07/14/20 22 XR, lumba r spine No observ ation record ed. [id number] [facility] [place] [address], [place], [address], 01/27/2023 13:15:53 05/30/20 25 XR, shoul qiana, 2 or more view No observ ation record ed. [facility] [place] [address], [place], [address], 05/30/2025 16:40:40 06/13/20 25 XR, hip + pelvi s, unila teral , 2 or 3 view No observ ation record ed. [email or web address] [facility] [place] [address], [place], [address], 06/13/2025 11:48:17 Result Notes None recorded. Problems Name Problem SNOMED Code Status Onset Date Resolution Date Notes Provider Name and Address Organization Details Recorded Time Kyphoscoli osis and scoliosis Active Not Available [facility] 3 13:13:40 Pain of hip region 34112300 Active Not Available [facility] 3 13:13:41 Disorder of bursa of shoulder region 37554844 Active Not Available [facility] 3 13:13:41 Degenerati on of interverte bral disc 09350788 Active Not Available [facility] 3 13:13:41 Closed fracture of patella 37183138 Active Not Available [facility] 3 13:13:41 Impacted cerumen of bilateral ears 6484736642290 108 Active 2021 Not Available [facility] 3 13:13:40 Presbycusi s 47355335 Active 2021 Not Available [facility] 3 13:13:41 Scoliosis of lumbar spine 539914711 Active 2021 Not Available [facility] 3 13:13:41 Low back pain 446187202 Active 2021 Not Available [facility] 3 13:13:40 Pain of right shoulder region Active 2024 AVERY Wetzel, [facility] 5 15:04:32 Osteoarthr itis of joint of right shoulder region 1786981526946 00 Active 2024 Mitra Olsen PA-C [address] [place] [address], [facility] [address], [place], [address] , [facility] 5 16:40:36 Pain of hip region 80695310 Active 2024 Radha arguello, [employer] [facility] 5 11:48:10 Osteoarthr itis of hip 037719778 Active 2024 Niru Quintero ATC L null, [facility] 5 11:19:27 Seasonal allergy 576621749 Active 2024 Myla Mora null, [facility] 5 15:19:19 Anxiety 78579039 Active 2024 Myla Mora null, [facility] 5 15:19:29 Arthritis 6458405 Active 2024 Myla Mora null, [facility] 5 15:19:39 Depressive disorder 71131537 Active 2024 Myla Dodd null, [facility] 5 15:19:54 Kidney disease 15371798 Active 2024 Myla Mora null, [facility] 5 15:20:08 History of pneumonia 834537656 Active 2024 Myla Mora null, [facility] 5 15:20:19 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 Procedures Surgical History Date Name Laterality Status Provider Name and Address Organization Details Recorded Time 5 Bollone Injection Template completed Mitra Olsen PA-C [address], [place] [address], [place], [address], [facility] 09/04/2025 20:45:46 5 Bollone Injection Template completed Mitra Olsen PA-C [address], [address], [place], [address], [facility] 05/30/2025 16:32:06 3 Shoulder completed AVERY Wetzel [facility] 05/30/2025 15:02:57 Rotator cuff surgery completed AVERY Wetzel [place] [facility] [place] [facility] 05/30/2025 15:03:16 Imaging Results None recorded. Procedure Notes None recorded. Medical Equipment None Reported. Allergies Allergen ID Allergen Name Allergen Category Reaction Reaction Severity Criticality Documentation Date Start Date Code Code System Note Provider Name and Address Organization Details Recorded Time 05721 Product containin g penicilli n (product) medicatio n Not available Not available Not available 01/27/2023 73641 8001 SNOMED Not Available [facility] 3 13:15:49 Medications Name Sig Start Date Stop Date Status Note LastModified by Organization Details LastModified Time atorvastati n 40 mg tablet 05/30 completed Not Available Not Available Not Available venlafaxine ER 37.5 mg capsule,ext ended release 24 hr TAKE 1 CAPSULE BY MOUTH ONCE DAILY IN THE MORNING WITH FOOD 09/06 completed Not Available Not Available Not Available Serostim 6 mg subcutaneou s solution 10/07 completed Not Available Not Available Not Available prednisone 10 mg tablet TAKE 1 TABLET BY MOUTH TWICE DAILY FOR 10 DAYS 05/30 completed Not Available Not Available Not Available venlafaxine ER 75 mg capsule,ext ended release 24 hr TAKE 1 CAPSULE BY MOUTH IN THE MORNING WITH FOOD 09/06 completed Not Available Not Available Not Available doxycycline hyclate 100 mg capsule 10/07 completed Not Available Not Available Not Available donepezil 5 mg tablet 10/07 completed Not Available Not Available Not Available oxybutynin chloride ER 10 mg tablet,exte nded release 24 hr TAKE 1 TABLET BY MOUTH ONCE DAILY active Not Available Not Available No t Available azithromyci n 250 mg tablet 10/07 completed Not Available Not Available Not Available hydrocodone 5 mg-acetamin ophen 325 mg tablet TAKE 1 TO 2 TABLETS BY MOUTH EVERY 4 TO 6 HOURS NEEDED FOR PAIN . DO NOT EXCEED 8 PER 24 HOURS active Not Available Not Available No t Available donepezil 10 mg tablet active Not Available Not Available Not Available bupivacaine HCl 0.5 % (5 mg/mL) injection solution Take 2 mL by injection route. 2024 active Not Available Not Available Not Avai lable venlafaxine ER 150 mg capsule,ext ended release 24 hr TAKE 1 CAPSULE BY MOUTH ONCE DAILY WITH FOOD active Not Available Not Available No t Available chlorthalid one 25 mg tablet 10/07 completed Not Available Not Available Not Available amlodipine 5 mg tablet TAKE 1 TABLET BY MOUTH EVERY DAY active Not Available Not Available No t Available acyclovir 400 mg tablet 05/30 completed Not Available Not Available Not Available tramadol 50 mg tablet Take 1 tablet every 6 hours by oral route. 2024 active Not Available Not Available Not Avai lable quinapril 40 mg tablet 05/30 completed Not Available Not Available Not Available Viread 300 mg tablet 10/07 completed Not Available Not Available Not Available prednisone 10 mg tablets in a dose pack Take 1 tab by mouth, 3 times a day for 3 daysTake 1 tab by mouth 2 times a day for 2 daysTake 1 tab by mouth once a day for 1 day 09/06 completed Not Available Not Available Not Available oxycodone-a cetaminophe n 5 mg-325 mg tablet 10/07 completed Not Available Not Available Not Available isoniazid 300 mg tablet 10/07 completed Not Available Not Available Not Available alprazolam 0.5 mg tablet 05/30 completed Not Available Not Available Not Available alprazolam 0.25 mg tablet Take 1 tablet 3 times a day by oral route. active Not Available Not Available No t Available prednisolon e acetate 1 % eye drops,suspe nsion 10/07 completed Not Available Not Available Not Available tamsulosin 0.4 mg capsule 10/07 completed Not Available Not Available Not Available trazodone 100 mg tablet 10/07 completed Not Available Not Available Not Available Kenalog 10 mg/mL suspension for injection Take 4 mL by injection route. 2024 active [facility]: [phone] [phone] Not Available Not Available Not Available hydrocodone 7.5 mg-acetamin ophen 325 mg tablet 10/07 completed Not Available Not Available Not Available pantoprazol e 40 mg tablet,elio yed release 10/07 completed Not Available Not Available Not Available erythromyci n 5 mg/gram (0.5 %) eye ointment 10/07 completed Not Available Not Available Not Available trazodone 150 mg tablet active Not Available Not Available Not Available mometasone 50 mcg/actuati on nasal spray 05/19 /2022 completed Not Available Not Available Not Available omeprazole 20 mg capsule,del ayed release 10/07 completed Not Available Not Available Not Available hydroxyzine HCl 25 mg tablet TAKE 1 TABLET BY MOUTH EVERY 8 HOURS NEEDED active Not Available Not Available No t Available hydrocodone 5 mg-acetamin ophen 500 mg tablet 10/07 completed Not Available Not Available Not Available mirtazapine 15 mg tablet 05/30 completed Not Available Not Available Not Available ketoconazol e 2 % topical cream 10/07 completed Not Available Not Available Not Available finasteride 5 mg tablet active Not Available Not Available Not Available modafinil 100 mg tablet TAKE 1 TABLET BY MOUTH ONCE DAILY IN THE MORNING 09/06 completed Not Available Not Available Not Available Low Dose Aspirin 81 mg tablet,elio yed release Take 1 tablet every day by oral route. active Not Available Not Available No t Available escitalopra m 10 mg tablet 05/30 completed Not Available Not Available Not Available escitalopra m 20 mg tablet 10/07 completed Not Available Not Available Not Available ezetimibe 10 mg tablet Take 1 tablet every day by oral route. active Not Available Not Available No t Available cyclosporin e 0.05 % eye drops in a dropperette INT 1 GTT IN OU HS 05/30 completed Not Available Not Available Not Available Vigamox 0.5 % eye drops 10/07 completed Not Available Not Available Not Available alfuzosin ER 10 mg tablet,exte nded release 24 hr Take 1 tablet every day by oral route. active Not Available Not Available No t Available tadalafil 5 mg tablet 05/30 completed Not Available Not Available Not Available TriLyte With Flavor Packets 420 gram oral solution 10/07 completed Not Available Not Available Not Available fenofibrate 160 mg tablet 05/30 completed Not Available Not Available Not Available Nevanac 0.1 % eye drops,suspe nsion 10/07 completed Not Available Not Available Not Available zolpidem ER 12.5 mg tablet,exte nded release,mul tiphase 10/07 completed Not Available Not Available Not Available chlorhexidi ne gluconate 0.12 % mouthwash RINSE MOUTH WITH 15ML (1 CAPFUL) FOR 30 SECONDS TWICE DAILY IN THE MORNING AND EVENING AFTER TOOTHBRUS MERRY. EXPECTORA TE AFTER RINSING, DO NOT SWALLOW active Not Available Not Available No t Available lisinopril 40mg active Not Available Not Av ailable Not Available Isentress 400 mg tablet 10/07 completed Not Available Not Available Not Available Durezol 0.05 % eye drops 10/07 completed Not Available Not Available Not Available Prezista 400 mg tablet 10/07 completed Not Available Not Available Not Available azelastine 205.5 mcg (0.15 %) nasal spray 05/30 completed Not Available Not Available Not Available Norvir 100 mg tablet 10/07 completed Not Available Not Available Not Available Intelence 200 mg tablet 10/07 completed Not Available Not Available Not Available Myrbetriq 25 mg tablet,exte nded release 05/30 completed Not Available Not Available Not Available Myrbetriq 50 mg tablet,exte nded release 10/07 completed Not Available Not Available Not Available Prezista 800 mg tablet 10/07 completed Not Available Not Available Not Available Tivicay 50 mg tablet active Not Available Not Available No t Available Genvoya 150 mg-150 mg-200 mg-10 mg tablet 10/07 completed Not Available Not Available Not Available doravirine 100 mg tablet Take 1 tablet every day by oral route. 09/06 completed Not Available Not Available Not Available Voltaren Arthritis Pain 1 % topical gel APPLY 2 GRAMS TO THE AFFECTED AREA(S) BY TOPICAL ROUTE 4 TIMES PER DAY 2024 active Not Available Not Available Not Avai lable Gemtesa 75 mg tablet TAKE 1 TABLET BY MOUTH ONCE DAILY active Not Available Not Available No t Available Vitals Date Recorded Body height Body mass index (BMI) Body weight Pain severity - 0-10 verbal numeric rating [Score] - Reported Provider Name and Address Organization Details Last Updated DateTime 05/30/2025 170.18 cm 22.2 kg/m2 40968.12 g AVERY Tang [facility] 05/30/2025 14:53:03 Date Recorded Body height Body mass index (BMI) Body weight Provider Name and Address Organization Details Last Updated DateTime 06/13/2025 170.18 cm 21.9 kg/m2 81063.93 g Radha Dalton [facility] 06/13/2025 11:47:13 Date Recorded Body mass index (BMI) Body height Body weight Provider Name and Address Organization Details Last Updated DateTime 08/11/2022 21.9 kg/m2 170.18 cm 42967.93 g Not Available Mahesh julian 01/27/2023 13:13:07 Date Recorded Body height Body mass index (BMI) Body weight Pain severity - 0-10 verbal numeric rating [Score] - Reported Provider Name and Address Organization Details Last Updated DateTime 08/22/2025 170.18 cm 21.9 kg/m2 19325.93 g 5 Lissarah Camp [facility] 08/22/2025 10:55:17 Date Recorded Body height Body mass index (BMI) Body weight Provider Name and Address Organization Details Last Updated DateTime 09/03/2025 170.18 cm 21.9 kg/m2 81982.93 g [facility] [employer] [facility] 09/03/2025 14:32:01 Social History Question Answer Notes LastModified by Organizat ion Details LastModified Time Tobacco Smoking Status Former Smoker Myla arguello, [facility] 09/06/2025 15:36:16 In The 14 Days Before Symptom Onset, Have You Had Close Contact With A Laboratory-confirm ed COVID-19 While That Case Was Ill? No [id number] Information not available 01/27/2023 In The 14 Days Before Symptom Onset, Have You Had Close Contact With A Person Who Is Under Investigation For COVID-19 While That Person Was Ill? No [id number] Information not available 01/27/2023 When Did You Quit Smoking? 16+yearssin shane jeongedison Information not available 09/06/2025 What Was The Date Of Your Most Recent Tobacco Screening? 09/03/2025 [email or web address] Information not available 09/03/2025 How Many Years Have You Smoked Tobacco? 22 Information not available 09/06/2025 Have You Recently Traveled Abroad? No [id number] Information not available 01/27/2023 Sex: Unknown Functional Status Question Answer Note LastModified by Organization D etails LastModified Time What is your level of alcohol consumption? None Information not available 09/06/2025 Mental Status None recorded. Family History Relationship Description Onset Age of this Age Resolved Age Notes LastModified by Organization Details LastModified Time Mother Heart disease Not available 2024 15:01:17 Sister History of cerebrovascu lar accident Not available 14:29:56 Sister Cerebrovascu lar accident Not available 07/2025 15:35:14 Brother Kidney disease [email or web address] Not available 2024 15:01:59 Unspecified Relation Hypertensive disorder Not available 2024 15:35:30 Medical History Condition Response KIDNEY STONES Y MRSA N SLEEP APNEA N ALLERGIES/HAYFEVER Y INFECTIOUS DISEASE Y LUNG DISEASE/DISORDER N INSOMNIA N HISTORY OF DRUG ABUSE N RADIATION / CHEMOTHERAPY N COPD N HIGH CHOLESTEROL / HYPERLIPIDEMIA N HYPERTHYROIDISM N BLOOD DISEASES N EAR OR HEARING PROBLEMS N HYPOTHYROIDISM N SHINGLES N DEPRESSION (INCLUDING POST ) Y HAVE YOU BEEN HOSPITALIZED OR SEEN IN [facility] IN THE PAST YEAR ? N STROKE/TIA N ULCERS N OBESITY N ANEURYSM N HISTORY WITH COMPLICATIONS WITH ANESTHES IA ? N ARTHRITIS Y USE OF BLOOD THINNERS N NO SIGNIFICANT PAST MEDICAL HISTORY N DIABETES, TYPE N PARATHYROID DISEASE N ENT N SEASONAL ALLERGIES N HEARTBURN / REFLUX N HEPATITIS / LIVER DISEASE N SLEEP DISORDER N HEADACHES/MIGRAINES N SEIZURES/EPILEPSY N CHF N PACEMAKER N DIZZINESS N HEART DISEASE/HEART PROBLEMS N AIDS/HIV Y FRACTURES N HYPERTENSION N CANCER: SPECIFY N TOURETTE'S N ANXIETY DISORDER Y BLOOD TRANSFUSION N ANESTHESIA COMPLICATIONS N ANEMIA/BLOOD DISORDER N CHRONIC EAR INFECTIONS N AUTOIMMUNE DISEASE N TUBERCULOSIS N Past Encounters Encounter ID Performer Location Encounter Start Date Encounter Closed Date Diagnosis/Indication Diagnosis SNOMED-CT Code Diagnosis ICD10 Code Diagnosis IMO Codes Diagnosis Note [id number] Kavon Gabriel MD [facility] [place] [address] [place] [address] 04/16/2022 00:00:00 04/16/2022 12:44:24 [id number] MD KATHY [facility] [place] [address] [place] [address] 07/14/2022 00:00:00 07/14/2022 15:47:33 [id number] Broderick Krishna MD [facility] [place] [address] [place] [address] 08/11/2022 00:00:00 08/11/2022 14:18:03 [id number] Amanda Barnett MD [facility] [place] [address] [place] [address] 05/30/2025 14:27:40 05/30/2025 15:48:57 Pain of right shoulder region [id number] M25.511 [id number] Osteoarthr itis of joint of right shoulder region [id number] M19.011 [id number] Amanda Barnett MD [facility] [place] [address] [place] [address] 06/13/2025 11:44:37 06/13/2025 12:11:42 Pain of hip region [id number] M25.551 [id number] Amanda Barnett MD [facility] [place] [address] [place] [address] 08/22/2025 10:49:09 08/22/2025 11:54:05 Pain of hip region [id number] M25.551 [id number] Osteoarthritis of hip 23 5310131 M16.11 [id number] Amanda Barnett MD [facility] [place] [address] [place] [address] 09/03/2025 14:27:40 09/03/2025 14:50:18 Pain of right shoulder region [id number] M25.511 [id number] Health Concerns Section Related Observation LastModified by Organization Detai ls LastModified Time None Recorded Concern Status LastModified by Organization Details LastModified Time None Recorded Advance Directives Directive None Recorded Payers Insurance Date Sequence Insurance Name Policy Number Policy Slaughter Covered Member ID Slaughter Member ID Guarantor Name 09/06/2025 1 [facility] - [employer] - [facility] - MEDICARE COMPLETE CHOICE PLAN 1 (MEDICARE REPLACEMENT PPO) [id number] Francisco Mckeon [id number] Francisco Mckeon 09/06/2025 1 [facility] (MEDICARE REPLACEMENT/AD VANTAGE - PPO) [id number] Francisco Mckeon [id number] Francisco Mckeon 09/06/2025 1 [facility] (MEDICARE REPLACEMENT/AD VANTAGE - PPO) [id number] Francisco Mckeon [id number] Francisco Mckeon
--- OUTSIDE RECORDS SUMMARY | 2025-10-09 12:57 | XMS_ITS | Patient Health Record ---
Author Organization [facility]. Address [address] [place] [address] Care Team Providers Care Forepart Rasper Name Role Phone ParishyoBraxton Primary Care Provider [phone] Allergies Allergen (clinical drug ingredient) Drug/Non Drug Allergy documented on EMR Reaction Allergy Type Onset Date Status Substance with penicillin structure and antibacterial mechanism of action (substance) PENICILLINS (uncoded) hives Allergy Active Results Component Value Reference Range Notes CBC/Diff Ambiguous Default Reviewed date:06/29/2025 07:03:10 AM Interpretation: Performing Lab:[facility] [place], [address] [facility] [address], [place], Phone - [phone], Director - Cristopher Notes/Report: WBC 9.2 3.4-10.8 x10E3/uL RBC 3.37 4.14-5.80 x10E6/uL Hemoglobin 10.7 13.0-17.7 g/dL Hematocrit 32.8 37.5-51.0 % MCV 97 79-97 fL MCH 31.8 26.6-33.0 pg MCHC 32.6 31.5-35.7 g/dL RDW 13.6 11.6-15.4 % Platelets 209 150-450 x10E3/uL Neutrophils 67 Not Estab. % Lymphs 23 Not Estab. % Monocytes 6 Not Estab. % Eos 3 Not Estab. % Basos 1 Not Estab. % Immature Cells LOAN EXPEDITOR Neutrophils (Absolute) 6.2 1.4-7.0 x10E3/uL Lymphs (Absolute) 2.2 0.7-3.1 x10E3/uL Monocytes(Absolute) 0.5 0.1-0.9 x10E3/uL Eos (Absolute) 0.3 0.0-0.4 x10E3/uL Baso (Absolute) 0.1 0.0-0.2 x10E3/uL Immature Granulocytes 0 Not Estab. % Immature Grans (Abs) 0.0 0.0-0.1 x10E3/uL NRBC LOAN EXPEDITOR Hematology Comments: LOAN EXPEDITOR A hand-written panel/profile was received from your office. In accordance with the [facility] Ambiguous Test Code Policy dated May 2003, we have assigned CBC with Differential/Platelet, Test Code #[id number] to this request. If this is not the testing you wished to receive on this specimen, please contact the [facility]/ Technical Services Department to clarify the test order. We appreciate your business. Benito Green CMP14 Default Comment A hand-written panel/profile was received from your office. In accordance with the [facility] Ambiguous Test Code Policy dated May 2003, we have completed your order by using the closest currently or formerly recognized AMA panel. We have assigned Comprehensive Metabolic Panel (14), Test Code #223710 to this request. If this is not the testing you wished to receive on this specimen, please contact the [facility]Technical Services Department to clarify the test order. We appreciate your business. Benito Green LP Default Reviewed date:06/29/2025 07:03:11 AM Interpretation: Performing Lab:[facility], Phone - [phone], Director - [facility] Notes/Report: Benito Green LP Default Comment A hand-written panel/profile was received from your office. In accordance with the [facility] Ambiguous Test Code Policy dated May 2003, we have completed your order by using the closest currently or formerly recognized AMA panel. We have assigned Lipid Panel, Test Code #[id number] to this request. If this is not the testing you wished to receive on this specimen, please contact the [facility]Technical Services Department to clarify the test order. We appreciate your business. CD4+Lymphs Reviewed date:12/04/2024 03:12:31 PM Interpretation: Performing Lab:[facility], [address] [place] [address], Phone - [phone], Director - [facility] Notes/Report: Absolute CD 4 [place] [phone] /uL % CD 4 Pos. Lymph. 20.0 30.8-58.5 % X ray : CHEST PA LATERAL Reviewed date:12/01/2024 12:06:27 PM Interpretation:Chronic Changes, No Active Disease Performing Lab: Notes/Report: Chronic Changes, No Active Disease CBC With Differential/Platel et Reviewed date:02/28/2025 06:18:49 AM Interpretation: Performing Lab:[facility], [address] [facility], Phone - [phone], [facility] - [facility] Notes/Report: WBC 9.7 3.4-10.8 x10E3/uL RBC 3.52 4.14-5.80 x10E6/uL Hemoglobin 11.1 13.0-17.7 g/dL Hematocrit 33.9 37.5-51.0 % MCV 96 79-97 fL MCH 31.5 26.6-33.0 pg MCHC 32.7 31.5-35.7 g/dL RDW 12.9 11.6-15.4 % Platelets 173 150-450 x10E3/uL Neutrophils 73 Not Estab. % Lymphs 17 Not Estab. % Monocytes 7 Not Estab. % Eos 2 Not Estab. % Basos 1 Not Estab. % Immature Cells LOAN EXPEDITOR Neutrophils (Absolute) 7.1 1.4-7.0 x10E3/uL Lymphs (Absolute) 1.7 0.7-3.1 x10E3/uL Monocytes(Absolute) 0.7 0.1-0.9 x10E3/uL Eos (Absolute) 0.2 0.0-0.4 x10E3/uL Baso (Absolute) 0.1 0.0-0.2 x10E3/uL Immature Granulocytes 0 Not Estab. % Immature Grans (Abs) 0.0 0.0-0.1 x10E3/uL NRBC LOAN EXPEDITOR Hematology Comments: LOAN EXPEDITOR Lipid Panel Reviewed date:02/28/2025 07:34:42 AM Interpretation: Performing Lab:[facility], [address] [place] [address], Phone - [phone], Director - [facility] Notes/Report: Cholesterol, Total 146 100-199 mg/dL Triglycerides 57 0-149 mg/dL HDL Cholesterol 85 >39 mg/dL VLDL Cholesterol Nathan 12 5-40 mg/dL LDL Chol Calc (NIH) 49 0-99 mg/dL LDL Calc Comment: LOAN EXPEDITOR Comp. Metabolic Panel (14) Reviewed date:02/28/2025 06:18:49 AM Interpretation: Performing Lab:[facility] [place], [address] [facility], Phone - [phone], Director - Cristopher Notes/Report: Glucose 109 70-99 mg/dL BUN 43 8-27 mg/dL Creatinine 2.46 0.76-1.27 mg/dL eGFR 25 >59 mL/min/1.73 BUN/Creatinine Ratio 17 10-24 Sodium 137 134-144 mmol/L Potassium 4.3 3.5-5.2 mmol/L Chloride 106 96-106 mmol/L Carbon Dioxide, Total 21 20-29 mmol/L Calcium 9.3 8.6-10.2 mg/dL Protein, Total 6.0 6.0-8.5 g/dL Albumin 3.9 3.7-4.7 g/dL Globulin, Total 2.1 1.5-4.5 g/dL Bilirubin, Total <0.2 0.0-1.2 mg/dL Alkaline Phosphatase 83 44-121 IU/L AST (SGOT) 20 0-40 IU/L ALT (SGPT) 17 0-44 IU/L RNA, Real Time PCR (Non-Grap h) Reviewed date:03/01/2025 06:32:04 AM Interpretation: Performing [facility], [address] [place] [address], Phone - [phone], Director - Leyla Notes/Report: HIV-1 RNA by PCR <20 HIV-1 RNA not detected . The reportable range for this assay is 20 to 10,000,000 copies HIV-1 RNA/mL. . log10 HIV-1 RNA [facility] Unable to calculate result since non-numeric result obtained for component test. CD4+Lymphs Reviewed date:02/28/2025 03:49:01 PM Interpretation: Performing Lab:[facility] [place], [address] [facility], Phone - [phone], Director - Cristopher Notes/Report: Absolute CD 4 [place] [phone] /uL % CD 4 Pos. Lymph. 19.2 30.8-58.5 % RNA, Real Time PCR (Non-Grap h) Reviewed date:12/03/2024 08:51:35 AM Interpretation: Performing Lab:[facility], [address] [facility], Phone - [phone], Director - Leyla Notes/Report: HIV-1 RNA by PCR <20 HIV-1 RNA not detected . The reportable range for this assay is 20 to 10,000,000 copies HIV-1 RNA/mL. . log10 HIV-1 RNA TNP Unable to calculate result since non-numeric result obtained for component test. Comp. Metabolic Panel (14) Reviewed date:12/02/2024 08:20:15 AM Interpretation: Performing Lab:[facility] [place], [address] [facility], Phone - [phone], Director - Cristopher Notes/Report: Glucose 115 70-99 mg/dL BUN 41 8-27 mg/dL Creatinine 2.41 0.76-1.27 mg/dL eGFR 26 >59 mL/min/1.73 BUN/Creatinine Ratio 17 10-24 Sodium 142 134-144 mmol/L Potassium 3.7 3.5-5.2 mmol/L Chloride 108 96-106 mmol/L Carbon Dioxide, Total 21 20-29 mmol/L Calcium 9.7 8.6-10.2 mg/dL Protein, Total 6.1 6.0-8.5 g/dL Albumin 4.0 3.7-4.7 g/dL Globulin, Total 2.1 1.5-4.5 g/dL Bilirubin, Total 0.3 0.0-1.2 mg/dL Alkaline Phosphatase 75 44-121 IU/L AST (SGOT) 24 0-40 IU/L ALT (SGPT) 21 0-44 IU/L Lipid Panel Reviewed date:12/02/2024 08:20:15 AM Interpretation: Performing Lab:[facility] [place], [address] [facility], Phone - [phone], Director - Cristopher Notes/Report: Cholesterol, Total 149 100-199 mg/dL Triglycerides 73 0-149 mg/dL HDL Cholesterol 83 >39 mg/dL VLDL Cholesterol Nathan 14 5-40 mg/dL LDL Chol Calc (NIH) 52 0-99 mg/dL LDL Calc Comment: LOAN EXPEDITOR B-Type Natriuretic Peptide Reviewed date:12/02/2024 08:20:15 AM Interpretation: Performing Lab:[facility] [place], [address] [facility], Phone - [phone], Director - [facility] Notes/Report: B-Type Natriuretic Peptide 179.4 0.0-100.0 pg/m L Siemens ADVIA Centaur XP methodology CBC With Differential/Platel et Reviewed date:12/02/2024 08:20:14 AM Interpretation: Performing Lab:[facility], [address] [facility], Phone - [phone], Director - [facility] Notes/Report: WBC 8.7 3.4-10.8 x10E3/uL RBC 3.46 4.14-5.80 x10E6/uL Hemoglobin 10.7 13.0-17.7 g/dL Hematocrit 32.8 37.5-51.0 % MCV 95 79-97 fL MCH 30.9 26.6-33.0 pg MCHC 32.6 31.5-35.7 g/dL RDW 14.4 11.6-15.4 % Platelets 207 150-450 x10E3/uL Neutrophils 72 Not Estab. % Lymphs 18 Not Estab. % Monocytes 7 Not Estab. % Eos 1 Not Estab. % Basos 1 Not Estab. % Immature Cells LOAN EXPEDITOR Neutrophils (Absolute) 6.2 1.4-7.0 x10E3/uL Lymphs (Absolute) 1.6 0.7-3.1 x10E3/uL Monocytes(Absolute) 0.6 0.1-0.9 x10E3/uL Eos (Absolute) 0.1 0.0-0.4 x10E3/uL Baso (Absolute) 0.1 0.0-0.2 x10E3/uL Immature Granulocytes 1 Not Estab. % Immature Grans (Abs) 0.0 0.0-0.1 x10E3/uL NRBC LOAN EXPEDITOR Hematology Comments: LOAN EXPEDITOR Reason For Referral No Information Medications Medication SIG (Take, Route, Frequency, Duration) Notes Start Date End Date Status Gemtesa 75 MG 1 tablet Orally Once a day; Duration: 30 days 07/27/2025 07/22/2026 Active Alfuzosin HCl ER 10mg Take 1 tablet by estefania ORAL Active amLODIPine Besylate 5 MG 1 tablet Orally Once a day; Duration: 90 days Active ALPRAZolam 0.5 MG 1/2tab Orally nnce at HS, prn; Duration: 90 days Patient was cautioned to uses alprazolam sparingly Active Methocarbamol 500 MG 1 tablet Orally every 6 hours; Duration: 30 day(s) Active Tivicay 50 MG 1 tablet Orally Once a day Active Donepezil HCl 10 MG Take 1 tablet by mouth every night at bedtime.; Duration: 90 Active Lipitor 40mg Take 1 tablet by estefania ORAL Active Myrbetriq 25 MG TAKE 1 TABLET BY MOUTH ONCE DAILY; Duration: 90 Active Restasis 0.05 % 1 ampule each eye Ophthalmic Twice a day; Duration: 90 days Active Lisinopril 40 MG 1 tablet Orally Once a day; Duration: 90 days Active Tivicay 50 MG TAKE 1 TABLET BY MOUTH ONCE DAILY; Duration: 90 Active Escitalopram Oxalate 10mg 1 tablet Orally Twice a day; Duration: 90 days Active Aspirin 81 81 MG 1 tablet Orally Once a day Active traZODone HCl 100 MG Take 1 tablet by mouth once daily.; Duration: 90 Active Alfuzosin HCl ER 10 MG TAKE 1 TABLET BY MOUTH IMMEDIATELY AFTER THE SAME MEAL ONCE DAILY; Duration: 90 Active Mirtazapine 15 MG TAKE 1 TABLET BY MOUTH ONCE DAILY AT BEDTIME; Duration: 90 Active Pifeltro 100 MG 1 tablet Orally Once a day; Duration: 90 days Active Pantoprazole Sodium 40mg take 1 tablet by ora ORAL Active Fexofenadine HCl 180mg take 1 tablet 180MG ORAL Active Finasteride 5mg Take 1 tablet by estefania ORAL Active Venlafaxine HCl ER 150 MG 1 capsule with food Orally Once a day 06/28/2025 Active ALPRAZolam 0.5 MG TAKE 1/2 TABLET BY MOUTH ONCE AT BEDTIME NEEDED; Duration: 90 09/14/2024 Active Zetia 10 MG 1 tablet Orally Once a day; Duration: 90 days Active traMADol HCl 50 MG 1 tablet as needed Orally four times per day; Duration: 30 days Active Atorvastatin Calcium 40 MG TAKE 1 TABLET BY MOUTH ONCE DAILY AT BEDTIME Active Mometasone Furoate 50 MCG/ACT USE 2 SPRAYS IN BOTH NOSTRILS ONCE DAILY Nasally Once a day; Duration: 90 days Active Lisinopril 40 MG 1 tablet Orally Once a day Active Ezetimibe 10 MG Take 1 tablet by mouth once daily.; Duration: 90 Active Restasis 0.05 % 1 ampule each eye Ophthalmic Twice a day; Duration: 90 days Active Atorvastatin Calcium 40 MG TAKE 1 TABLET BY MOUTH ONCE DAILY AT BEDTIME; Duration: 90 Active Finasteride 5 MG Take 1 tablet by mouth once daily.; Duration: 90 Active hydrOXYzine HCl 25mg 1 tablet as needed Orally every 8 hrs; Duration: 30 day(s) 05/20/2016 Active amLODIPine Besylate 5 MG TAKE 1 TABLET BY MOUTH ONCE DAILY; Duration: 90 Active Venlafaxine HCl ER 75 MG 1 capsule with food Orally once per day in the morning; Duration: 30 days 05/22/2025 Active Immunizations Vaccine Route Administration Date Status Comme nts Pneumococcal conjugate PCV 13 (Prevnar 13) Unknown 08/08/2014 Administered zzInfluenza, quadrivalent, injectable, preservative free (All) IM Intramuscular 09/09/2018 Administered Not given by Pneumococcal polysaccharide PPV23 (Pneumovax 23) IM Intramuscular 09/01/2000 Administered Pneumococcal polysaccharide PPV23 (Pneumovax 23) IM Intramuscular 09/02/2005 Administered Pneumococcal polysaccharide PPV23 (Pneumovax 23) IM Intramuscular 08/20/2010 Administered Pneumococcal conjugate PCV13 (Wqlpqmh20) Unknown 08/08/2014 Administered Pfizer-BioNTech COVID-19 Vaccine Unknown 01/20/2021 Administered Pfizer-BioNTech COVID-19 Vaccine Unknown 02/13/2021 Administered Flulaval Quadrivalent (Influenza Vaccine) IM Intramuscular 08/24/2024 Administered Flulaval Medicare IM Intramuscular 08/18/2023 Administered Flulaval Medicare IM Intramuscular 09/11/2020 Administered Flulaval IM Intramuscular 08/09/2019 Administered Covid-19 Vaccine, mRNA Spikevax [id number] IM Intramuscular 02/27/2025 Administered COVID-19 Vaccine, mRNA COMIRNATY IM Intramuscular 04/21/2024 Administered Capvaxive Pneumococcal 21 IM Intramuscular 02/27/2025 Administered ABRYSVO RSV Vaccine IM Intramuscular 08/18/2023 Administer ed Social History Sex Assigned At : Social History Observation Description Sex Assigned At Male Problems Problem Type SNOMED Code ICD Code Onset Dates Problem Status W/U Status Risk Notes Problem Human immunodeficiency virus infection (90306237) Human immunodeficiency virus [HIV] disease (B20) Active confirmed Willie Problem Human immunodeficiency virus infection (00377414) HIV disease (B20) Active confirmed Problem 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 Problem Renal insufficiency (277257112) Renal insufficiency (N28.9) Active confirmed Problem Excessive daytime sleepiness (4124603283) Excessive daytime sleepiness (G47.19) Active confirmed Problem Vaccination given (654376547) Encounter for immunization (Z23) Active confirmed Problem Poor appetite (93970848) Poor appetite (R63.0) Active confirmed Problem Amnesia (23553400) Memory loss d ue to medical condition (R41.3) Active confirmed Problem Hypercholesterolemia (18743245) Hypercholesterolemia (E78.00) Active confirmed Problem Dry eyes (782285040) Dry eyes (H04.123) Active confirmed Problem Pain in thoracic spine (750068900) Midline thoracic back pain, unspecified chronicity (M54.6) Active confirmed Problem Human immunodeficiency virus infection (53783439) Human immunodeficiency virus (HIV) (B20) Active confirmed Problem Hyperlipidemia (88757127) Other hyperlipidemia (E78.4) 0 confirmed Willie Problem Major depression, single episode (96410788) Major depressive disorder, single episode, unspecified (F32.9) 0 confirmed Willie Problem Essential hypertension (02383107) Essential (primary) hypertension (I10) 0 confirmed Willie Problem Allergic rhinitis (62326088) Allergic rhinitis, unspecified (J30.9) 0 confirmed Willie Problem Gastro-esophageal reflux disease without esophagitis (227685547) Gastro-esophageal reflux disease without esophagitis (K21.9) 0 confirmed Willie Problem Disorder of bursa (83790953) Bursopathy, unspecified (M71.9) 0 confirmed Willie Problem Lower urinary tract symptoms due to benign prostatic hypertrophy (51606980303684) Enlarged prostate with lower urinary tract symptoms (N40.1) 0 confirmed Willie Problem Amnesia (65214491) Other amnesia (R41.3) 0 confirmed Willie Problem Depressive disorder (85534844) Depressive disorder, not elsewhere classified (F32.9) 0 confirmed Willie Problem Hyperlipidemia (23986415) Other and unspecified hyperlipidemia (E78.5) 0 confirmed Willie Problem Osteoarthrosis (752245462) Osteoarthrosis (M19.90) 0 confirmed Willie Problem Esophageal reflux (775312541) Esophageal reflux (K21.9) 0 confirmed Willie Problem Lower urinary tract symptoms due to benign prostatic hypertrophy (85431305169379) BPH w/o urinary obs/LUTS (N40.0) 0 confirmed Willie Problem Lipodystrophy (77202016) 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) 0 confirmed Willie Problem General examination of patient (178758953) Routine general medical examination at a health care facility (Z00.00) 0 confirmed Willie Problem Long-term current us e of drug therapy (537070187) Encounter for long-term (current) use of other medications (Z79.899) 0 confirmed Willie Problem Allergic rhinitis (11085298) Allergic rhinitis, cause unspecified (J30.9) 0 confirmed Willie Problem Essential hypertension (55943869) Unspecified essential hypertension (I10) 0 confirmed Willie Problem Viral infection (33335097) Viral infection (B34.9) 0 confirmed Willie Problem Disorder of tongue (92556214) Other specified conditions of the tongue (K14.8) 0 confirmed Willie Problem Exposure to tuberculosis (2121919012721) Contact with or exposure to tuberculosis (Z20.1) 0 confirmed Willie Vital Signs Heart Rate 82 /min 02/27/2025 Temperature 97.9 degrees Fahrenheit 02/27/2025 Respiratory Rate 14 /min 02/27/2025 Oximetry 96 % 02/27/2025 Blood pressure diastolic 68 mm Hg 02/27/2025 Height 68 in 02/27/2025 Blood pressure systolic 120 mm Hg 02/27/2025 Weight 143.0 lbs 02/27/2025 BMI 21.74 kg/m2 02/27/2025 Encounters Encounter Location Date Provider Diagnosis [address] [address] 12/01/2024 Braxton Prelutsky SOB (shortness of br eath) on exertion R06.02 ; Encounter for immunization Z23 ; Essential (primary) hypertension I10 ; Endogenous depression F33.2 ; Human immunodeficiency virus [HIV] disease B20 ; Renal insufficiency N28.9 ; Allergic rhinitis, unspecified J30.9 ; Gastro-esophageal reflux disease without esophagitis K21.9 ; Enlarged prostate with lower urinary tract symptoms N40.1 ; Dry eyes H04.123 ; Memory loss due to medical condition R41.3 ; Midline thoracic back pain, unspecified chronicity M54.6 and Hypercholesterolemia E78.[address] [address] 02/27/2025 Braxton Prelutsky Encounter for administration of vaccine Z23 ; Encounter for immunization Z23 ; Essential (primary) hypertension I10 ; Endogenous depression F33.2 ; Human immunodeficiency virus [HIV] disease B20 ; Renal insufficiency N28.9 ; Allergic rhinitis, unspecified J30.9 ; Gastro-esophageal reflux disease without esophagitis K21.9 ; Enlarged prostate with lower urinary tract symptoms N40.1 ; Dry eyes H04.123 ; Memory loss due to medical condition R41.3 ; Excessive daytime sleepiness G47.19 ; Midline thoracic back pain, unspecified chronicity M54.6 and Hypercholesterolemia E78.00 [facility], [facility] [address] [place] [address] 07/02/2025 Braxton Prelutsky Encounter for immuni zation Z23 ; Essential (primary) hypertension I10 ; Endogenous depression F33.2 ; Renal insufficiency N28.9 ; Human immunodeficiency virus [HIV] disease B20 ; Allergic rhinitis, unspecified J30.9 ; Gastro-esophageal reflux disease without esophagitis K21.9 ; Enlarged prostate with lower urinary tract symptoms N40.1 ; Dry eyes H04.123 ; Memory loss due to medical condition R41.3 ; Excessive daytime sleepiness G47.19 ; Midline thoracic back pain, unspecified chronicity M54.6 and Hypercholesterolemia E78.00 [facility], [address] [place] [address] 12/02/2024 [facility] Endogenous depressio n F33.2 ; Enlarged prostate with lower urinary tract symptoms N40.1 ; Essential (primary) hypertension I10 and Hypercholesterolemia E78.00 [facility], [address] [place] [address] 12/21/2024 [facility], [address] [address] 01/26/2025 [facility], [facility] [address] [place] [address] 10/17/2024 [facility], [facility] [address] [place] [address] 11/20/2024 [facility] [address] [place] [address] 12/07/2024 [facility], [facility] [address] [place] [address] 12/07/2024 [facility], [address] [address] 12/07/2024 [facility], [address] [address] 12/08/2024 [facility], [address] [address] 12/08/2024 [facility], [address] [address] 02/18/2025 [facility] Human immunodeficien cy virus [HIV] disease [address] [address] 05/22/[address] [address] 05/22/2025 Braxton Prelutsky Excessive daytime sleepiness G47.[address] [address] 05/22/[address] [address] 05/22/2025 [facility], [address] [address] 05/31/[address] [address] 06/11/2025 [facility], [facility]. [facility] [place] [address] 06/22/2025 [facility] [address], [facility]. [facility] [place] [address] 06/22/2025 [facility], [facility]. [address] [place] [address] 06/25/2025 [facility] [address] [place] [address] 06/28/2025 [facility] [address] [place] [address] 07/16/2025 [facility] [address] [place] [address] 07/27/2025 [facility] [address] [place] [address] 07/27/[address] [address] 07/28/[address] [address] 08/10/[address] [address] 09/27/[address] [address] 09/27/[address] [address] 10/04/[address] [address] 10/04/2025 [facility] Assessments Encounter Date Diagnosis (ICD Code) Assessment Notes Treatment Notes Treatment Clinical Notes Section Notes 12/01/2024 SOB (shortness of breath) on exertion (ICD-10 - R06.02) 12/01/2024 Encounter for immunization (ICD-10 - Z23) 12/02/2024 Endogenous depressio n (ICD-10 - F33.2) 02/18/2025 Human immunodeficien cy virus [HIV] disease (ICD-10 - B20) Willie 05/22/2025 Excessive daytime sleepiness (ICD-10 - G47.19) 06/22/2025 HIV disease (ICD-10 - B20) 07/02/2025 Encounter for immunization (ICD-10 - Z23) 02/27/2025 Encounter for administration of vaccine (ICD-10 - Z23) 02/27/2025 Encounter for immunization (ICD-10 - Z23) 12/02/2024 Enlarged prostate wi th lower urinary tract symptoms (ICD-10 - N40.1) [facility] 07/02/2025 Essential (primary) hypertension (ICD-10 - I10) Willie 12/01/2024 Essential (primary) hypertension (ICD-10 - I10) [facility] 12/02/2024 Essential (primary) hypertension (ICD-10 - I10) [facility] 12/01/2024 Endogenous depressio n (ICD-10 - F33.2) patient was cautioned to use alprazolam only very sparingly 07/02/2025 Endogenous depressio n (ICD-10 - F33.2) patient was cautioned to use alprazolam only very sparingly 02/27/2025 Essential (primary) hypertension (ICD-10 - I10) [facility] 02/27/2025 Endogenous depressio n (ICD-10 - F33.2) patient was cautioned to use alprazolam only very sparingly 07/02/2025 Renal insufficiency (ICD-10 - N28.9) follow-up with his [employer] 12/01/2024 Human immunodeficien cy virus [HIV] disease (ICD-10 - B20) [facility] 12/02/2024 Hypercholesterolemia (ICD-10 - E78.00) 12/01/2024 Renal insufficiency (ICD-10 - N28.9) 07/02/2025 Human immunodeficien cy virus [HIV] disease (ICD-10 - B20) [facility] 02/27/2025 Human immunodeficien cy virus [HIV] disease (ICD-10 - B20) [facility] 02/27/2025 Renal insufficiency (ICD-10 - N28.9) 07/02/2025 Allergic rhinitis, unspecified (ICD-10 - J30.9) [facility] 12/01/2024 Allergic rhinitis, unspecified (ICD-10 - J30.9) [facility] 12/01/2024 Gastro-esophageal reflux disease without esophagitis (ICD-10 - K21.9) [facility] 07/02/2025 Gastro-esophageal reflux disease without esophagitis (ICD-10 - K21.9) [facility] 02/27/2025 Allergic rhinitis, unspecified (ICD-10 - J30.9) [facility] 02/27/2025 Gastro-esophageal reflux disease without esophagitis (ICD-10 - K21.9) [facility] 07/02/2025 Enlarged prostate wi th lower urinary tract symptoms (ICD-10 - N40.1) [facility] patient will reconsult his urologist he will drink most of his fluids earlier in the day 12/01/2024 Enlarged prostate wi th lower urinary tract symptoms (ICD-10 - N40.1) [facility] 12/01/2024 Dry eyes (ICD-10 - H04.123) 07/02/2025 Dry eyes (ICD-10 - H04.123) 02/27/2025 Enlarged prostate wi th lower urinary tract symptoms (ICD-10 - N40.1) [facility] 02/27/2025 Dry eyes (ICD-10 - H04.123) 07/02/2025 Memory loss due to medical condition (ICD-10 - R41.3) 12/01/2024 Memory loss due to medical condition (ICD-10 - R41.3) 12/01/2024 Midline thoracic tristan k pain, unspecified chronicity (ICD-10 - M54.6) 07/02/2025 Excessive daytime sleepiness (ICD-10 - G47.19) 02/27/2025 Memory loss due to medical condition (ICD-10 - R41.3) 02/27/2025 Excessive daytime sleepiness (ICD-10 - G47.19) 07/02/2025 Midline thoracic tristan k pain, unspecified chronicity (ICD-10 - M54.6) 12/01/2024 Hypercholesterolemia (ICD-10 - E78.00) 07/02/2025 Hypercholesterolemia (ICD-10 - E78.00) 02/27/2025 Midline thoracic tristan k pain, unspecified chronicity (ICD-10 - M54.6) 02/27/2025 Hypercholesterolemia (ICD-10 - E78.00) Plan Of Treatment Pending Test Test Name Order Date Adenosine Stress Nuclear Test 12/01/2024 CBC With Differential/Platelet 6 CBC With Differential/Platelet 6 CBC With Differential/Platelet 7 CBC With Differential/Platelet 7 CBC With Differential/Platelet 8 CBC With Differential/Platelet 8 Electrocardogram ECG ([facility]) 12/01 Next Appt Details Provider Name:YuniorChristine haley, 10/31/2025 12:00:00 PM, [address] [place], [address], Insurance Providers Payer Name Payer Address Payer Phone Subscriber Number Group Number Insured Name Patient Relationship to Insured Coverage Start Date Coverage End Date [employer] [address] [place] [phone] [id number] Francisco Mckeon Self - patient is the insured 4 Medical (General) History Medical History History ICD Code repair of rotator cuff patellar fracture Surgical History Surgery Date(Month/Year) surgery
== END 2025-10-09 12:48 | disposition home or self-care (01) ==
DX: M16.11 Unilateral primary osteoarthritis, right hip (principal)
CPT/HCPCS: 20610; 77002; J1010; J2003